=== PATIENT | male | born 1935 | race Caucasian/White ===

== ENCOUNTER 2018-03-12 22:37 | Observation (INO) | payer OTHER ==
[~2018-03-12] VITALS: Ht 188 cm; Wt 99.6 kg
[~2018-03-12 22:37] MED LIST: ALLO100T PO; ATOR40TA PO; CALC600T44 PO; CO Q100C9 PO; DIGO0.25 PO; FINA5TAB77 PO; HUMSS INJ; JANU50TA PO; L-LY500T4 PO; LANTUS2P INJ; LATA.005%O EACH EYE; LORTA5 PO; MAGN250T9 PO; METO100T PO; METO50TA PO; POTA-243 PO; PRIN5TAB PO; SAW450CA2 PO; TAB-TAB PO; VITA200017 PO; WARF7.5T4 PO
[2018-03-12 23:06] VITALS: BP 134/92; PULSE 97; RESP 16; TEMP 98.5; O2SAT 97
[2018-03-12 23:56] LABS: AUTOMATED NEUTROPHIL # 5.4 TH/MM3 (1.8-7.7); BASOPHIL % 0.6 % (0.0-2.0); EOSINOPHIL % 0.6 % (0.0-4.0); HEMOGLOBIN 15.1 GM/DL (13.0-17.0); LYMPH % 14.4 % (9.0-44.0); MEAN CORPUSCULAR HEMOGLOBIN 30.9 PG (27.0-34.0); MEAN CORPUSCULAR HGB CONC 35.1 % (32.0-36.0); MEAN PLATELET VOLUME 8.9 FL (7.0-11.0); MONO % 8.8 % (0.0-8.0); MONOCYTE # 0.6 TH/MM3 (0-0.9); NEUT % 75.6 % (16.0-70.0); PLATELET COUNT 173 TH/MM3 (150-450); RED BLOOD COUNT 4.89 MIL/MM3 (4.50-5.90); RED CELL DISTRIBUTION WIDTH 14.5 % (11.6-17.2); WHITE BLOOD COUNT 7.2 TH/MM3 (4.0-11.0)
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
[2018-03-13 00:10] LABS: ALBUMIN 3.9 GM/DL (3.4-5.0); AST (GOT) 15 U/L (15-37); BLOOD UREA NITROGEN 18 MG/DL (7-18); CALCIUM 9.3 MG/DL (8.5-10.1); CHLORIDE 104 MEQ/L (98-107); CREATININE 1.04 MG/DL (0.60-1.30); GLOMERULAR FILTRATION RATE 69 ML/MIN (>89); GLUCOSE,RANDOM 178 MG/DL (74-106); SODIUM (NA) 139 MEQ/L (136-145)
[2018-03-13 00:11] LABS: ALT (GPT) 20 U/L (12-78)
[2018-03-13 00:22] LABS: ALKALINE PHOSPHATASE 69 U/L (45-117); TOTAL PROTEIN 7.8 GM/DL (6.4-8.2)
[2018-03-13 04:25] LABS: BILIRUBIN, URINE NEG (NEG); BLOOD, URINE NEG (NEG); GLUCOSE,URINE NEG (NEG); HYALINE CAST, URINE 2 /lpf (RARE); KETONE, URINE NEG (NEG); MUCUS URINE FEW /lpf (OCC); NITRITE,URINE NEG (NEG); PH, URINE 6.5 (5.0-8.5); SQUAMOUS EPITHELIAL CELL URINE 1 /hpf (0-5); URINE COLOR LIGHT-YELLOW (YELLW/STRAW); URINE LEUKOCYTE ESTERASE NEG (NEG)
[2018-03-13 07:52] VITALS: BP 166/88; PULSE 80; RESP 16; O2SAT 96
--- NOTE | 2018-03-13 09:50 | EKG ---
Date Performed: 03/13/2018 Time Performed: 00:10:56 PTAGE: 83 years EKG: Atrial fibrillation with ventricular demand pacing Right bundle branch block PREVIOUS TRACING : 04/12/2015 12.20 Suspect left ventricular hypertrophy with repolarizat ion change. Prior tracing shows no intrinsic beats. DOCTOR: Marshall Leal Interpretating Date/Time 03/13/2018 09:48:50
[2018-03-13] MEDS ORDERED: INSULIN ASPART 1,000 UNITS/10 ML VIAL SQ ONE (10:00)
--- NOTE | 2018-03-13 10:04 | PD ---
History of Present Illness Chief Complaint: Psychiatric Symptoms Time Seen by Provider: 09:15 Travel History International Travel<30 Days: No Contact w/Intl Traveler<30days: No Known affected area: No Legal Status Legal Status: Patel Act Patel Act Signed By: Clinton Lynn Patel Act Comment: 2017 @ 2200 History of Present Illness: This is an 83-year-old single, male who presented to this facility under a Patel act for reportedly being unable to care for himself. Patient is unknown to this facility for mental health issues. Reviewed electronic medical record, labs, and discussed case with staff. His nurse reports he has been pleasant and compliant throughout his stay. Follow- up was conducted in patient's room in the main ED with his nurse present. Patient was found sitting up in bed having just finished his breakfast. Patient is alert and oriented 4. He is hard of hearing. His speech is clear, logical, and organized. There is no indication of internal stimulation or thought blocking. He denies feeling suicidal, homicidal, experiencing auditory or visual hallucinations. I can elicit no delusional material. Patient reports that he is followed by Mrs. Anderson from the [facility]. He states that he resides alone and has never been . He does report he has 1 older brother who splits his time between this area and [place]. He states that his brother just return to [place]. Patient denies ever having been treated for mental illness. He denies any previous suicidal attempts. He states "heck no, I am allergic to pain". His mood is good his affect is euthymic. PFSH Past Medical History Cancer: No Cardiovascular Problems: Yes (PACER,CHF,ATRIAL FIBRILLATION) Diabetes: Yes (INSULIN DEPENDENT) Patient Takes Glucophage: No Endocrine: Yes Gastrointestinal Disorders: Yes (GERD, CONSTIPATION) Genitourinary: No Hepatitis: No Hiatal Hernia: No Hypertension: Yes Immune Disorder: No Medical other: No Musculoskeletal: Yes (ARTHRITIS) Neurologic: No Psychiatric: No Reproductive: Yes (REDUCED FUNCTION OF KIDNEYS) Respiratory: No Tetanus Vaccination: Unknown Past Surgical History Abdominal Surgery: Yes (TRACY ING. HERNIA REP., ERCP) AICD: No Cardiac Surgery: Yes (PACEMAKER INSERTION 2010) Joint Replacement: No Oral Surgery: Yes (TONSILLECTOMY) Pacemaker: Yes (BIOTRONIC) Other Surgery: Yes Psychiatric History Psychiatric History Denies Hx Psychiatric Treatment: NO HOSPITAL RECORDS INDICATING ANY PSYCHIATRIC HISTORY History of Inpatient Treatment: No Guns or firearms in home: No Social History Hx Alcohol Use: No Hx Tobacco Use: No Hx Substance Use: No Hx of Substance Use Treatment: No Allergies-Medications (Allergen,Severity, Reaction): Coded Allergies: No Known Allergies (Unverified Adverse Reaction, Unknown, 03/12/18) Reported Meds & Prescriptions Reported Meds & Active Scripts Active Hydrocodone/Acetaminophen 5 mg/325 mg 1 Tab Tab 1 Tab PO Q4H PRN Reported Co Q 10 (Coenzyme Q10) 100 Mg Cap 200 Mg PO DAILY Xalatan (Latanoprost) 0.005 % Soln 1 Drop EACH EYE HS Multivitamin (Multivitamins) 1 Tab Tab 1 Tab PO DAILY Warfarin Sodium 7.5 Mg Tab 7.5 Mg PO DAILY TAKES 7.5 MG HS ON SUNDAY,SUNDAY,SUNDAY,SUNDAY Vitamin D3 Super Strength (Cholecalciferol) 2,000 Unit Cap 2,000 Unit PO HS Saw [place] (Saw [place] (Serenoa Repens)) 450 Mg Cap 450 Mg PO BID Metoprolol Tartrate 100 mg (Metoprolol Tartrate) 100 Mg Tab 100 Mg PO DAILY Metoprolol Tartrate 50 mg (Metoprolol Tartrate) 50 Mg Tab 50 Mg PO HS Magnesium (Magnesium Oxide) 250 Mg Tab 250 Mg PO HS Prinivil (Lisinopril) 5 Mg Tab 5 Mg PO DAILY Lantus (Insulin Glargine) 100 Units/Ml Inj 45 Unit INJ HS L-Lysine (Lysine) 500 Mg Tab 500 Mg PO DAILY Klor-Con 10 Meq (Potassium Chloride) 10 Meq Tabcr 10 Meq PO DAILY Januvia (Sitagliptin Phosphate) 50 Mg Tab 50 Mg PO DAILY Humalog (Insulin Human Lispro) 100 Unit/Ml Inj 15-20 Units INJ TIDAC Proscar 5 Mg Tab (Finasteride) 5 Mg Tab 5 Mg PO HS Digoxin 0.25 mg (Digoxin) 0.25 Mg Tab 0.25 Mg PO DAILY Calcium (Calcium Carbonate) 600 Mg Tab 1,200 Mg PO HS Atorvastatin 40 mg (Atorvastatin Calcium) 40 Mg Tab 40 Mg PO HS Allopurinol 100 Mg Tab 100 Mg PO DAILY Mental Status Examination Appearance: Appropriate Consciousness: Alert Orientation: x4 Motor Activity: Other (Sitting on the stretcher) Speech: Unremarkable Language: Adequate Fund of Knowledge: Adequate Attention and Concentration: Adequate Memory: Unremarkable Mood: Appropriate, Good Affect: Appropriate, Euthymic Thought Process & Associations: Intact Thought Content: Appropriate Hallucination Type: None Delusion Type: None Suicidal Ideation: No Suicidal Plan: No Suicidal Intention: No Homicidal Ideation: No Homicidal Plan: No Homicidal Intention: No Insight: Fair Judgment: Adequate MDM Medical Decision Making Medical Record Reviewed: Yes Assessment/Plan 83-year-old single, male who presents to this facility under Patel act by Clinton SALDAÑA for being unable to care for self. Upon evaluation this morning patient is awake, alert, oriented 4. His speech is clear, logical, and organized. He denies feeling suicidal, homicidal, or experiencing auditory or visual hallucinations. I am unable to elicit any delusional material. There is no indication of internal stimulation. Patient is at a loss to why he was brought here. He feels that he is taking adequate care of himself. He does not meet Patel act or inpatient admission criteria at this time and he would receive no benefit from an admission. However, he does appear to need some case management assistance. I discussed the patient with Dr. Son who concurred and has lifted his Patel act. Medical staff are contacting case management and have passed on the name of his stone paver with [facility]. Orders Orders Complete Blood Count With Diff (03/12/18 23:08) Comprehensive Metabolic Panel (03/12/18 23:08) Psych Screen (03/12/18 23:08) Urinalysis - C+S If Indicated (03/12/18 23:28) Thyroid Stimulating Hormone (03/12/18 23:17) Electrocardiogram (03/13/18 00:05) Diet Regular Basic (03/13/18 Breakfast) Insulin Aspart Inj (Novolog Inj) (03/13/18 10:00) Results Vital Signs Date Time Temp Pulse Resp B/P (MAP) Pulse Ox O2 Delivery O2 Flow Rate FiO2 03/13/18 07:52 80 16 166/88 (114) 96 Room Air 03/12/18 23:06 98.5 97 16 134/92 (408) 97 Laboratory Tests Test 03/12/18 23:17 03/13/18 04:15 White Blood Count 7.2 Red Blood Count 4.89 Hemoglobin 15.1 Hematocrit 43.0 Mean Corpuscular Volume 88.0 Mean Corpuscular Hemoglobin 30.9 Mean Corpuscular Hemoglobin Concent 35.1 Red Cell Distribution Width 14.5 Platelet Count 173 Mean Platelet Volume 8.9 Neutrophils (%) (Auto) 75.6 Lymphocytes (%) (Auto) 14.4 Monocytes (%) (Auto) 8.8 Eosinophils (%) (Auto) 0.6 Basophils (%) (Auto) 0.6 Neutrophils # (Auto) 5.4 Lymphocytes # (Auto) 1.0 Monocytes # (Auto) 0.6 Eosinophils # (Auto) 0.0 Basophils # (Auto) 0.0 CBC Comment DIFF FINAL Differential Comment Blood Urea Nitrogen 18 Creatinine 1.04 Random Glucose 178 Total Protein 7.8 Albumin 3.9 Calcium Level 9.3 Alkaline Phosphatase 69 Aspartate Amino Transf (AST/SGOT) 15 Alanine Aminotransferase (ALT/SGPT) 20 Total Bilirubin 1.0 Sodium Level 139 Potassium Level 3.6 Chloride Level 104 Carbon Dioxide Level 23.0 Anion Gap 12 Estimat Glomerular Filtration Rate 69 Thyroid Stimulating Hormone 3rd Gen 2.680 Urine Color LIGHT-YELLOW Urine Turbidity CLEAR Urine pH 6.5 Urine Specific [place] 1.009 Urine Protein NEG Urine Glucose (UA) NEG Urine Ketones NEG Urine Occult Blood NEG Urine Nitrite NEG Urine Bilirubin NEG Urine Urobilinogen LESS THAN 2.0 Urine Leukocyte Esterase NEG Urine RBC 1 Urine WBC LESS THAN 1 Urine Squamous Epithelial Cells 1 Urine Hyaline Casts 2 Urine Mucus FEW Microscopic Urinalysis Comment CULT NOT INDICATED Diagnosis Primary Impression: Impaired mobility and ADLs Psychiatrically Cleared: Yes Condition: Stable Amirah Sims March 13, 2018 10:04
[2018-03-13] MEDS ORDERED: SODIUM CHLORIDE 0.9% FLUSH 10 ML FLUSH IVF PRN (11:15)
--- NOTE | 2018-03-13 11:36 | PD ---
Physical Exam Date Seen by Provider: March 13, 2018 Time Seen by Provider: 11:38 Narrative 83-year-old male previously medically cleared for psychiatric evaluation after being Patel acted for apparently not be able to care for himself at home. [facility] gone to the home multiple times and found it to be in disarray and unsafe for Mr. Calderon to be living there. Patient was seen by psychiatric services and deemed not appropriate for the Patel act, but when discussed with case management they felt that he was in unsafe discharge to his own home, as [facility] and [facility][MD] feel that he would be unsafe to be living in his current residence. It was recommended that the patient be admitted for observation, physical therapy review, and medical stabilization. They recommend placement in a assisted living facility to ensure the patient's safety and welfare. Data Data Last Documented VS Vital Signs Date Time Temp Pulse Resp B/P (MAP) Pulse Ox O2 Delivery O2 Flow Rate FiO2 03/13/18 07:52 80 16 166/88 (114) 96 Room Air 03/12/18 23:06 98.5 Orders Orders Complete Blood Count With Diff (03/12/18 23:08) Comprehensive Metabolic Panel (03/12/18 23:08) Psych Screen (03/12/18 23:08) Urinalysis - C+S If Indicated (03/12/18 23:28) Thyroid Stimulating Hormone (03/12/18 23:17) Electrocardiogram (03/13/18 00:05) Diet Regular Basic (03/13/18 Breakfast) Insulin Aspart Inj (Novolog Inj) (03/13/18 10:00) Electrocardiogram (03/13/18 11:01) Prothrombin Time / Inr (Pt) (03/13/18 11:01) Act Partial Throm Time (Ptt) (03/13/18 11:01) Sodium Chloride 0.9% Flush (Ns Flush) (03/13/18 11:15) Chest, Single Ap (03/13/18 11:21) Admit Order (Ed Use Only) (03/13/18 11:32) Labs Laboratory Tests Test 03/12/18 23:17 03/13/18 04:15 White Blood Count 7.2 TH/MM3 Red Blood Count 4.89 MIL/MM3 Hemoglobin 15.1 GM/DL Hematocrit 43.0 % Mean Corpuscular Volume 88.0 FL Mean Corpuscular Hemoglobin 30.9 PG Mean Corpuscular Hemoglobin Concent 35.1 % Red Cell Distribution Width 14.5 % Platelet Count 173 TH/MM3 Mean Platelet Volume 8.9 FL Neutrophils (%) (Auto) 75.6 % Lymphocytes (%) (Auto) 14.4 % Monocytes (%) (Auto) 8.8 % Eosinophils (%) (Auto) 0.6 % Basophils (%) (Auto) 0.6 % Neutrophils # (Auto) 5.4 TH/MM3 Lymphocytes # (Auto) 1.0 TH/MM3 Monocytes # (Auto) 0.6 TH/MM3 Eosinophils # (Auto) 0.0 TH/MM3 Basophils # (Auto) 0.0 TH/MM3 CBC Comment DIFF FINAL Differential Comment Blood Urea Nitrogen 18 MG/DL Creatinine 1.04 MG/DL Random Glucose 178 MG/DL Total Protein 7.8 GM/DL Albumin 3.9 GM/DL Calcium Level 9.3 MG/DL Alkaline Phosphatase 69 U/L Aspartate Amino Transf (AST/SGOT) 15 U/L Alanine Aminotransferase (ALT/SGPT) 20 U/L Total Bilirubin 1.0 MG/DL Sodium Level 139 MEQ/L Potassium Level 3.6 MEQ/L Chloride Level 104 MEQ/L Carbon Dioxide Level 23.0 MEQ/L Anion Gap 12 MEQ/L Estimat Glomerular Filtration Rate 69 ML/MIN Thyroid Stimulating Hormone 3rd Gen 2.680 uIU/ML Urine Color LIGHT-YELLOW Urine Turbidity CLEAR Urine pH 6.5 Urine Specific [place] 1.009 Urine Protein NEG mg/dL Urine Glucose (UA) NEG mg/dL Urine Ketones NEG mg/dL Urine Occult Blood NEG Urine Nitrite NEG Urine Bilirubin NEG Urine Urobilinogen LESS THAN 2.0 MG/DL Urine Leukocyte Esterase NEG Urine RBC 1 /hpf Urine WBC LESS THAN 1 /hpf Urine Squamous Epithelial Cells 1 /hpf Urine Hyaline Casts 2 /lpf Urine Mucus FEW /lpf Microscopic Urinalysis Comment CULT NOT INDICATED MDM Medical Record Reviewed: Yes Supervised Visit with TRISTEN: Yes Narrative Course 83-year-old male previously medically cleared for psychiatric evaluation after being Patel acted for apparently not be able to care for himself at home. [facility] has gone to the home multiple times and found it to be in disarray and unsafe for Mr. Calderon to be living there. Patient was seen by psychiatric services and deemed not appropriate for the Patel act, but when discussed with case management they felt that he was in unsafe discharge to his own home, as [facility] and [facility] feel that he would be unsafe to be living in his current residence. It was recommended that the patient be admitted for observation, physical therapy review, and medical stabilization. They recommend placement in a assisted living facility to ensure the patient's safety and welfare. Call was placed to the hospitalist, who agreed to admit the patient for observation. Diagnosis Primary Impression: Impaired mobility and ADLs Admitting Information Admitting Physician Requests: Observation Condition: Stable Joseph Douglas March 13, 2018 11:36
[2018-03-13] MEDS ORDERED: SODIUM CHLORIDE 0.9% FLUSH 10 ML FLUSH IV FLUSH PRN (12:00)
[2018-03-13] MEDS ORDERED: ONDANSETRON HCL 4 MG/2 ML VIAL IVP PRN (12:00)
[2018-03-13] MEDS ORDERED: MAGNESIUM HYDROXIDE SUSP 30 ML CUP PO PRN (12:00)
[2018-03-13] MEDS ORDERED: BISACODYL 10 MG SUPP RECTAL PRN (12:00)
[2018-03-13] MEDS ORDERED: LACTULOSE SYRUP 20 GM/30 ML CUP PO PRN (12:00)
[2018-03-13] MEDS ORDERED: NALOXONE HCL 0.4 MG/ML AMP IV PUSH PRN (12:00)
[2018-03-13] MEDS ORDERED: ALLO100 PO (12:31)
[2018-03-13] MEDS ORDERED: HYDR25TA5 PO (12:31)
[2018-03-13] MEDS ORDERED: FLUT1SPR5 EACH NARE (12:31)
[2018-03-13] MEDS ORDERED: LIPI40TA PO (12:31)
[2018-03-13] MEDS ORDERED: LANO0.252 PO (12:31)
[2018-03-13] MEDS ORDERED: POTA10TA2 PO (12:31)
[2018-03-13] MEDS ORDERED: FURO1TAB60 PO (12:31)
[2018-03-13] MEDS ORDERED: SITA50 PO (12:31)
[2018-03-13] MEDS ORDERED: COUM4TAB PO (12:31)
[2018-03-13] MEDS ORDERED: NOVOLOGP2 SQ (12:31)
[2018-03-13] MEDS ORDERED: LANTUS2P SQ (12:31)
[2018-03-13 12:36] LABS: INTERNATIONAL NORMALIZED RATIO 1.1 RATIO; PROTHROMBIN TIME - PATIENT 11.6 SEC (9.8-11.6)
--- NOTE | 2018-03-13 12:52 | RADRPT ---
EXAM DATE/TIME: 03/13/2018 12:23 [place] COMPARISON: No previous studies available for comparison. INDICATIONS : Congestion and shortness of breath. MEDICAL HISTORY : Myocardial infarction. SURGICAL HISTORY : Pacemaker. ENCOUNTER: Initial ACUITY: 1 day PAIN SCORE: Non-responsive. LOCATION: Bilateral chest FINDINGS: A single AP erect portable view of the chest was obtained and demonstrates a left subclavian transven ous pacer in place. The heart size is mildly enlarged. There are no focal infiltrates or effusions. T here is no perihilar edema. The bony thorax is intact with degenerative changes in the thoracic spine . There is apparent scarring. CONCLUSION: Cardiomegaly with no definite acute cardiopulmonary disease. Leo Martinez MD on March 13, 2018 at 12:50 Board Certified Radiologist. This report was verified electronically.
[2018-03-13 13:30] VITALS: BP 162/84; PULSE 86; RESP 20; O2SAT 96
--- NOTE | 2018-03-13 13:59 | HHI.HP ---
HPI Service [facility] Primary Care Physician Rene Bermudez MD Admission Diagnosis Unable to care for self/Diabetes/Difficulty ambulating/Fall Risk Diagnoses: Chief Complaint: unable to care for self. Travel History International Travel<30 Days: No Contact w/Intl Traveler <30 Da: No Traveled to Known Affected Are: No History of Present Illness Mr. Calderon is a pleasant 83 year old male with a history of Afib, Diabetes, HTN who was brought to the hospital under [employer] act due to inability to care for himself and poor living conditions. He lives alone and apparently has been in touch with [employer] to clean up his house. Today, he went to the store and store merchandiser noted that patient is not able to even go to his car properly. His pants fell and he tried to pull it up. Police was called and they took him home where they noticed extremely poor condition. Subsequently, patient was brought to the hospital for an evaluation. Patient was evaluated by psychiatry who lifted schmid act. Case management was consulted for placement help. Patient wants to go home but he is fine with going to a half-way or assisted living for a short while and then go home. He denies any chest pain, shortness of breath, fever, chills. No dysuria, hematuria. No changes in bowel habits. Review of Systems Except as stated in HPI: all other systems reviewed are Neg Past Family Social History Past Medical History Afib DM HTN GERD Past Surgical History Hernia repair, Pacemaker 2010, Tonsillectomy Reported Medications Hydrocodone/Acetaminophen 5 mg/325 mg 1 Tab Tab 1 Tab PO Q4H PRN Reported Co Q 10 (Coenzyme Q10) 100 Mg Cap 200 Mg PO DAILY Xalatan (Latanoprost) 0.005 % Soln 1 Drop EACH EYE HS Multivitamin (Multivitamins) 1 Tab Tab 1 Tab PO DAILY Warfarin Sodium 7.5 mg (Warfarin Sodium) 7.5 Mg Tab 7.5 Mg PO DAILY TAKES 7.5 MG HS ON SUNDAY,SUNDAY,SUNDAY,SUNDAY Vitamin D3 (Cholecalciferol) 2,000 Unit Cap 2,000 Unit PO HS [place] (Saw [place] (Serenoa Repens)) 450 Mg Cap 450 Mg PO BID Metoprolol Tartrate 100 mg (Metoprolol Tartrate) 100 Mg Tab 100 Mg PO DAILY Metoprolol Tartrate 50 mg (Metoprolol Tartrate) 50 Mg Tab 50 Mg PO HS Magnesium (Magnesium Oxide) 250 Mg Tab 250 Mg PO HS Prinivil (Lisinopril) 5 Mg Tab 5 Mg PO DAILY Lantus (Insulin Glargine) 100 Units/Ml Inj 45 Unit INJ HS L-Lysine (Lysine) 500 Mg Tab 500 Mg PO DAILY Klor-Con 10 Meq (Potassium Chloride) 10 Meq Tabcr 10 Meq PO DAILY Januvia (Sitagliptin Phosphate) 50 Mg Tab 50 Mg PO DAILY Humalog (Insulin Human Lispro) 100 Unit/Ml Inj 15-20 Units INJ TIDAC Proscar 5 Mg Tab (Finasteride) 5 Mg Tab 5 Mg PO HS Digoxin 0.25 mg (Digoxin) 0.25 Mg Tab 0.25 Mg PO DAILY Calcium (Calcium Carbonate) 600 Mg Tab 1,200 Mg PO HS Atorvastatin 40 mg (Atorvastatin Calcium) 40 Mg Tab 40 Mg PO HS Allopurinol 100 Mg Tab 100 Mg PO DAILY Allergies: Coded Allergies: No Known Allergies (Unverified Allergy, Unknown, 03/13/18) Family History No family history of Alzheimer's or Parkinson's. Social History Denies using tobacco, alcohol or illicit drugs. Physical Exam Vital Signs Vital Signs Date Time Temp Pulse Resp B/P (MAP) Pulse Ox O2 Delivery O2 Flow Rate FiO2 03/13/18 07:52 80 16 166/88 (114) 96 Room Air 03/12/18 23:06 98.5 97 16 134/92 (106) 97 Physical Exam GENERAL: This is a well-nourished, well-developed patient, in no apparent distress. Hard of hearing but still able to communicate effectively. Not disheveled. SKIN: No rashes, ecchymoses or lesions. Warm and dry. HEAD: Atraumatic. Normocephalic. No temporal or scalp tenderness. EYES: Pupils equal round and reactive. No injection or drainage. ENT: Nose without bleeding, purulent drainage or septal hematoma. Airway patent. NECK: Trachea midline. No lymphadenopathy. Supple, nontender, no meningeal signs. CARDIOVASCULAR: Regular rate and rhythm without murmurs, gallops, or rubs. No JVD. RESPIRATORY: Clear to auscultation. Breath sounds equal bilaterally. No wheezes , rales, or rhonchi. GASTROINTESTINAL: Abdomen soft, non-tender, nondistended. No guarding. MUSCULOSKELETAL: Extremities without clubbing, cyanosis, or edema. NEUROLOGICAL: Awake and alert. Cranial nerves II through XII intact. No focal neurological deficits. Normal speech. Laboratory Laboratory Tests Test 03/12/18 23:17 03/13/18 04:15 03/13/18 12:14 White Blood Count 7.2 Red Blood Count 4.89 Hemoglobin 15.1 Hematocrit 43.0 Mean Corpuscular Volume 88.0 Mean Corpuscular Hemoglobin 30.9 Mean Corpuscular Hemoglobin Concent 35.1 Red Cell Distribution Width 14.5 Platelet Count 173 Mean Platelet Volume 8.9 Neutrophils (%) (Auto) 75.6 Lymphocytes (%) (Auto) 14.4 Monocytes (%) (Auto) 8.8 Eosinophils (%) (Auto) 0.6 Basophils (%) (Auto) 0.6 Neutrophils # (Auto) 5.4 Lymphocytes # (Auto) 1.0 Monocytes # (Auto) 0.6 Eosinophils # (Auto) 0.0 Basophils # (Auto) 0.0 CBC Comment DIFF FINAL Differential Comment Blood Urea Nitrogen 18 Creatinine 1.04 Random Glucose 178 Total Protein 7.8 Albumin 3.9 Calcium Level 9.3 Alkaline Phosphatase 69 Aspartate Amino Transf (AST/SGOT) 15 Alanine Aminotransferase (ALT/SGPT) 20 Total Bilirubin 1.0 Sodium Level 139 Potassium Level 3.6 Chloride Level 104 Carbon Dioxide Level 23.0 Anion Gap 12 Estimat Glomerular Filtration Rate 69 Thyroid Stimulating Hormone 3rd Gen 2.680 Urine Color LIGHT-YELLOW Urine Turbidity CLEAR Urine pH 6.5 Urine Specific [place] 1.009 Urine Protein NEG Urine Glucose (UA) NEG Urine Ketones NEG Urine Occult Blood NEG Urine Nitrite NEG Urine Bilirubin NEG Urine Urobilinogen LESS THAN 2.0 Urine Leukocyte Esterase NEG Urine RBC 1 Urine WBC LESS THAN 1 Urine Squamous Epithelial Cells 1 Urine Hyaline Casts 2 Urine Mucus FEW Microscopic Urinalysis Comment CULT NOT INDICATED Prothrombin Time 11.6 Prothromb Time International Ratio 1.1 Activated Partial Thromboplast Time 25.3 Result Diagram: 03/12/18 2317 03/12/18 2317 Imaging Last Impressions Chest X-Ray 03/13/18 1121 Signed Impressions: Service Date/Time: Tuesday, March 13, 2018 12:23 - CONCLUSION: Cardiomegaly with no definite acute cardiopulmonary disease. MD Ashley Clemente VTE Risk Assessment Ashley VTE Risk Assessment: Mod/High Risk (score >= 2) Caprini Risk Assessment Model Point Value = 1 Point Value = 2 Point Value = 3 Point Value = 5 Age 41-60 Minor surgery BMI > 25 kg/m2 Swollen legs Varicose veins or History of unexplained or recurrent spontaneous Oral contraceptives or hormone replacement Sepsis (< 1 month) Serious lung disease, including pneumonia (< 1 month) Abnormal pulmonary function Acute myocardial infarction Congestive heart failure (< 1 month) History of inflammatory bowel disease Medical patient at bed rest Age 61-74 Arthroscopic surgery Major open surgery (> 45 min) Laparoscopic surgery (> 45 min) Malignancy Confined to bed (> 72 hours) Immobilizing plaster cast Central venous access Age >= 75 History of VTE Family history of VTE Factor V Leiden Prothrombin [id number] Lupus anticoagulant Anticardiolipin antibodies Elevated serum homocysteine Heparin-induced thrombocytopenia Other congenital or acquired thrombophilia Stroke (< 1 month) Elective arthroplasty Hip, pelvis, or leg fracture Acute spinal cord injury (< 1 month) Prophylaxis Regimen Total Risk Factor Score Risk Level Prophylaxis Regimen 0-1 Low Early ambulation 2 Moderate Order ONE of the following: *Sequential Compression Device (SCD) *Heparin 5000 units SQ BID 3-4 Higher Order ONE of the following medications: *Heparin 5000 units SQ TID *Enoxaparin/Lovenox 40 mg SQ daily (WT < 150 kg, CrCl > 30 mL/min) *Enoxaparin/Lovenox 30 mg SQ daily (WT < 150 kg, CrCl > 10-29 mL/min) *Enoxaparin/Lovenox 30 mg SQ BID (WT < 150 kg, CrCl > 30 mL/min) AND/OR *Sequential Compression Device (SCD) 5 or more Highest Order ONE of the following medications: *Heparin 5000 units SQ TID (Preferred with Epidurals) *Enoxaparin/Lovenox 40 mg SQ daily (WT < 150 kg, CrCl > 30 mL/min) *Enoxaparin/Lovenox 30 mg SQ daily (WT < 150 kg, CrCl > 10-29 mL/min) *Enoxaparin/Lovenox 30 mg SQ BID (WT < 150 kg, CrCl > 30 mL/min) AND *Sequential Compression Device (SCD) Assessment and Plan Problem List: (1) Impaired mobility and ADLs ICD Code: Z74.09 - Other reduced mobility Status: Acute (2) Atrial fibrillation ICD Code: I48.91 - Atrial fibrillation Status: Acute (3) Diabetes mellitus ICD Code: E11.9 - Diabetes mellitus Status: Acute (4) Hypertension ICD Code: I10 - Hypertension Status: Acute Assessment and Plan Mr. Calderon is a pleasant 83 year old male with a history of DM, Afib s/p pacemaker placement who presented to the ED under schmid act due to poor living condition and inability to take care of himself. Psychiatry lifted schmid act. Patient wants to go home. Impaired self care Potential danger to self and others (If patient continues to drive). - Case management is working on placement. [address] would be for the patient to go to SNF and then go to an [facility] - No acute medical issues at this point. Atrial fibrillation -Patient has a pacemaker. He mentions his insurance analyst is with [facility], [place]. -Patient was supposed to be on Warfarin. INR 1.1 which indicates that he has not been taking his medications. -It will likely be easier to take Apixaban for him. Will start patient on Apixaban 5mg BID. -Heart rate went up to 102 later in the day. Will start patient on Metoprolol 25mg BID. Will adjust and/or add CCB if needed. -Hold off using Digoxin for now. Diabetes mellitus -Home med includes 45 units of Lantus. His BG was 178 and subsequently 130s. -He probably does not need this much Lantus. Will start patient on Levemir 10 units and sliding scale insulin. -Will adjust meds as needed. His HbA1C is 6.8. -There is a possibility that patient has been receiving too much hypoglycemic medications (oral and insulin) which may have affected his mentation and general health. Hypertension Hyperlipidemia -Continue Lipitor 40mg QHS. Currently blood pressure within normal range. If needed we will consider BP meds. Full code. Apitwylaban Aileen Rizo DO March 13, 2018 13:59
[2018-03-13] MEDS ORDERED: GLUCAGON 1 MG/ML VIAL OTHER PRN (14:00)
[2018-03-13] MEDS ORDERED: DEXTROSE 50% IN WATER 50 ML VIAL(D50) IV PUSH PRN (14:00)
[2018-03-13 14:44] VITALS: BP 146/96; PULSE 102; RESP 20; TEMP 97.8; O2SAT 97
[2018-03-13 15:10] LABS: HEMOGLOBIN A1C 6.8 % (4.3-6.0)
[2018-03-13 15:59] VITALS: BP 144/86; PULSE 102; RESP 20; TEMP 98.5; O2SAT 95
[2018-03-13] MEDS: INSULIN ASPART SUPPLEMENTAL SCALE SQ SCH ×2 (17:17→22:59)
[2018-03-13] MEDS ORDERED: INSULIN DETEMIR 100 UNITS/ML VIAL SQ SCH ×2 (21:00)
[2018-03-13 22:11] VITALS: BP_SYST 161; BP_SYST 183; BP_DIAS 103; BP_DIAS 104; PULSE 88; RESP 16; TEMP 97.4; O2SAT 94
[2018-03-13] MEDS: METOPROLOL TARTRATE 25 MG TAB PO SCH (22:58)
[2018-03-13] MEDS: ATORVASTATIN 40 MG TAB PO SCH (22:58)
[2018-03-13] MEDS: FLUTICASONE PROPIONATE 50 MCG/ACT 16 GM NASAL SPRAY EACH NARE SCH (22:58)
[2018-03-13] MEDS: APIXABAN 5 MG TABLET PO SCH (23:02)
[2018-03-13] MEDS: SODIUM CHLORIDE 0.9% FLUSH 10 ML FLUSH IV FLUSH SCH (23:03)
[2018-03-14] VITALS (7 sets, daily range): BP systolic 132–197; BP diastolic 56–106; PULSE 73–106; RESP 16–20; TEMP 97.4–98.6; O2SAT 94–97
[2018-03-14] MEDS ORDERED: cloNIDine HCL 0.1 MG TAB PO PRN (08:15)
[2018-03-14] MEDS: FLUTICASONE PROPIONATE 50 MCG/ACT 16 GM NASAL SPRAY EACH NARE SCH ×2 (08:48→21:39)
[2018-03-14] MEDS: METOPROLOL TARTRATE 25 MG TAB PO SCH ×2 (08:49→21:40)
[2018-03-14] MEDS: APIXABAN 5 MG TABLET PO SCH ×2 (08:49→21:40)
[2018-03-14] MEDS: SODIUM CHLORIDE 0.9% FLUSH 10 ML FLUSH IV FLUSH SCH ×2 (08:50→21:40)
[2018-03-14] MEDS: INSULIN ASPART SUPPLEMENTAL SCALE SQ SCH ×4 (08:50→21:41)
--- NOTE | 2018-03-14 09:02 | HHI.PR ---
Subjective Remarks Follow-up for unsafe discharge, diabetes mellitus, hypertension. Patient is currently doing well. No chest pain, shortness of breath, fever or chills. He keeps mentioning about going home. However he is willing to go to SNF if arranged. But he is anxious to go home. Objective Vitals Vital Signs Date Time Temp Pulse Resp B/P (MAP) Pulse Ox O2 Delivery O2 Flow Rate FiO2 03/14/18 08:58 98.0 85 16 179/106 (130) 97 03/14/18 05:41 97.9 90 16 197/99 (131) 96 03/14/18 01:07 98.6 89 16 132/88 (103) 95 03/13/18 22:11 97.4 88 16 161/104 (123) 94 03/13/18 15:59 98.5 102 20 144/86 (105) 95 03/13/18 14:47 03/13/18 14:44 97.8 102 20 146/96 (113) 97 03/13/18 14:33 03/13/18 13:30 86 20 162/84 (110) 96 Room Air I/O 03/13/18 03/13/18 03/13/18 03/14/18 03/14/18 03/14/18 07:00 15:00 23:00 07:00 15:00 23:00 Output Total 1200 ml Balance -1200 ml Output Urine Total 1200 ml # Voids 1 Result Diagram: 03/12/18 2317 03/12/18 2317 Imaging Last Impressions Chest X-Ray 03/13/18 1121 Signed Impressions: Service Date/Time: Tuesday, March 13, 2018 12:23 - CONCLUSION: Cardiomegaly with no definite acute cardiopulmonary disease. Leo Martinez MD Objective Remarks GENERAL: Alert, NAD. Somewhat hard of hearing but able to communicate well. SKIN: Warm and dry. HEAD: Normocephalic. EYES: No scleral icterus. No injection or drainage. NECK: Supple, trachea midline. No JVD or lymphadenopathy. CARDIOVASCULAR: Regular rate and rhythm without murmurs, gallops, or rubs. RESPIRATORY: Breath sounds equal bilaterally. No accessory muscle use. GASTROINTESTINAL: Abdomen soft, non-tender, nondistended. MUSCULOSKELETAL: No cyanosis, or edema. BACK: Nontender without obvious deformity. No CVA tenderness. Procedures None A/P Problem List: (1) Impaired mobility and ADLs ICD Code: Z74.09 - Other reduced mobility Status: Acute (2) Atrial fibrillation ICD Code: I48.91 - Atrial fibrillation Status: Acute (3) Diabetes mellitus ICD Code: E11.9 - Diabetes mellitus Status: Acute (4) Hypertension ICD Code: I10 - Hypertension Status: Acute Assessment and Plan Mr. Calderon is a pleasant 83 year old male with a history of DM, Afib s/p pacemaker placement who presented to the ED under schmid act due to poor living condition and inability to take care of himself. Psychiatry lifted schmid act. Patient wants to go home. Impaired self care Potential danger to self and others (If patient continues to drive). - Case management is working on placement. [address] would be for the patient to go to SNF and then go to an [facility] - No acute medical issues at this point. Atrial fibrillation -Patient has a pacemaker. He mentions his dentist private practice is with [facility]. -Apixaban 5mg BID. -Metoprolol 25mg BID. Diabetes mellitus -Increase Levemir from 10 to 15 units and sliding scale insulin - change to medium scale. -His HbA1C is 6.8. -There is a possibility that patient has been receiving too much hypoglycemic medications (oral and insulin) which may have affected his mentation and general health. Hypertension Hyperlipidemia -Continue Lipitor 40mg QHS. -BP is somewhat high today. Will start patient Nifedipine 30mg Qday. Full code. Apixaban Discharge plan: CM is working on possible SNF placement. Aileen Rizo DO March 14, 2018 9:02 am
[2018-03-14] MEDS ORDERED: NIFEdipine 30 MG SUSTAINED RELEASE TAB PO ONE (14:45)
[2018-03-14] MEDS: ATORVASTATIN 40 MG TAB PO SCH (21:40)
[2018-03-14] MEDS: INSULIN DETEMIR 100 UNITS/ML VIAL SQ SCH (21:41)
[2018-03-15 04:40] VITALS: BP 128/61; PULSE 74; RESP 17; TEMP 98; O2SAT 94
[2018-03-15 07:34] VITALS: BP 154/85; PULSE 83; RESP 16; TEMP 97.7; O2SAT 95
[2018-03-15] MEDS: INSULIN ASPART SUPPLEMENTAL SCALE SQ SCH ×4 (08:00→21:00)
[2018-03-15] MEDS: NIFEdipine 30 MG SUSTAINED RELEASE TAB PO SCH (08:34)
[2018-03-15] MEDS: METOPROLOL TARTRATE 25 MG TAB PO SCH ×3 (08:34→22:05)
[2018-03-15] MEDS: APIXABAN 5 MG TABLET PO SCH ×2 (08:34→22:05)
[2018-03-15] MEDS: SODIUM CHLORIDE 0.9% FLUSH 10 ML FLUSH IV FLUSH SCH ×2 (08:35→22:01)
[2018-03-15] MEDS: FLUTICASONE PROPIONATE 50 MCG/ACT 16 GM NASAL SPRAY EACH NARE SCH ×2 (08:35→22:01)
[2018-03-15 11:39] VITALS: BP 135/95; PULSE 69; RESP 20; TEMP 97.3; O2SAT 96
[2018-03-15] MEDS ORDERED: APIX5TAB PO (12:12)
[2018-03-15] MEDS ORDERED: NOVOLOGP2 SQ (12:12)
[2018-03-15] MEDS ORDERED: LEVEMIR SQ (12:12)
[2018-03-15] MEDS ORDERED: NIFE30TA8 PO (12:14)
[2018-03-15] MEDS ORDERED: METO25TA3 PO (12:14)
--- NOTE | 2018-03-15 13:40 | HHI.PR ---
Subjective Remarks Follow-up for unsafe discharge, diabetes mellitus, hypertension. No acute concerns. However he request that he transferred to a regular room. He would like to go to retirement facility as soon as possible. Objective Vitals Vital Signs Date Time Temp Pulse Resp B/P (MAP) Pulse Ox O2 Delivery O2 Flow Rate FiO2 03/15/18 11:39 97.3 69 20 135/95 (108) 96 03/15/18 07:34 97.7 83 16 154/85 (108) 95 03/15/18 04:40 98.0 74 17 128/61 (83) 94 03/14/18 23:39 98.0 75 17 134/56 (82) 94 03/14/18 19:51 97.8 106 17 137/69 (91) 96 03/14/18 15:40 97.4 73 20 140/89 (106) 97 03/14/18 14:25 98.0 83 20 141/85 (103) 97 Result Diagram: 03/12/18231603/12/182316 Imaging Last Impressions Chest X-Ray 03/13/18 1121 Signed Impressions: Service Date/Time: Tuesday, March 13, 2018 12:23 - CONCLUSION: Cardiomegaly with no definite acute cardiopulmonary disease. Leo Martinez MD Objective Remarks GENERAL: Alert, NAD. Somewhat hard of hearing but able to communicate well. SKIN: Warm and dry. HEAD: Normocephalic. EYES: No scleral icterus. No injection or drainage. NECK: Supple, trachea midline. No JVD or lymphadenopathy. CARDIOVASCULAR: Regular rate and rhythm without murmurs, gallops, or rubs. RESPIRATORY: Breath sounds equal bilaterally. No accessory muscle use. GASTROINTESTINAL: Abdomen soft, non-tender, nondistended. MUSCULOSKELETAL: No cyanosis, or edema. BACK: Nontender without obvious deformity. No CVA tenderness. Procedures None A/P Problem List: (1) Impaired mobility and ADLs ICD Code: Z74.09 - Other reduced mobility Status: Acute (2) Atrial fibrillation ICD Code: I48.91 - Atrial fibrillation Status: Acute (3) Diabetes mellitus ICD Code: E11.9 - Diabetes mellitus Status: Acute (4) Hypertension ICD Code: I10 - Hypertension Status: Acute Assessment and Plan Mr. Calderon is a pleasant 83 year old male with a history of DM, Afib s/p pacemaker placement who presented to the ED under schmid act due to poor living condition and inability to take care of himself. Psychiatry lifted schmid act. Patient wants to go home. Impaired self care Potential danger to self and others (If patient continues to drive). - Case management is working on placement. [address] would be for the patient to go to SNF and then go to an [facility] -Patient requests that he is moved to a regular room when he can use bathroom and take shower. He again expressed keen interest to go to SNF as soon as possible. Case management continues to work on rehab placement. Atrial fibrillation -Patient has a pacemaker. He mentions his hot dimpling machine operator is with [facility]. -Apixaban 5mg BID. -Metoprolol 25mg BID. Diabetes mellitus -Levemir 15 units and sliding scale insulin -His HbA1C is 6.8. -There is a possibility that patient has been receiving too much hypoglycemic medications (oral and insulin) which may have affected his mentation and general health. Hypertension Hyperlipidemia -Continue Lipitor 40mg QHS. -Continue nifedipine 30mg Qday. Transfer to a regular MedSurg room. Full code. Apixaban Discharge plan: CM is working on possible SNF placement. Aileen Rizo DO March 15, 2018 1:40 pm
[2018-03-15 15:14] VITALS: BP 142/87; PULSE 64; RESP 16; TEMP 98.2; O2SAT 95
[2018-03-15 19:59] VITALS: BP 94/66; PULSE 82; RESP 20; TEMP 97.8; O2SAT 95
[2018-03-15] MEDS: INSULIN DETEMIR 100 UNITS/ML VIAL SQ SCH (21:00)
[2018-03-15] MEDS: ATORVASTATIN 40 MG TAB PO SCH (22:05)
[2018-03-15 23:05] VITALS: BP 125/75; PULSE 83; RESP 20; TEMP 97.4; O2SAT 94
[2018-03-16 04:52] VITALS: BP 127/88; PULSE 90; RESP 20; TEMP 97.1; O2SAT 95
[2018-03-16 08:00] VITALS: BP 101/68; PULSE 86; RESP 18; TEMP 97.2; O2SAT 96
[2018-03-16] MEDS: INSULIN ASPART SUPPLEMENTAL SCALE SQ SCH ×4 (08:00→21:54)
[2018-03-16] MEDS: APIXABAN 5 MG TABLET PO SCH ×2 (09:39→21:51)
[2018-03-16] MEDS: NIFEdipine 30 MG SUSTAINED RELEASE TAB PO SCH (09:40)
[2018-03-16] MEDS: SODIUM CHLORIDE 0.9% FLUSH 10 ML FLUSH IV FLUSH SCH ×2 (09:44→21:53)
[2018-03-16] MEDS: FLUTICASONE PROPIONATE 50 MCG/ACT 16 GM NASAL SPRAY EACH NARE SCH ×2 (09:44→21:52)
--- NOTE | 2018-03-16 11:00 | HHI.PR ---
Subjective Remarks Awaiting placement. No safe discharge arranged yet. Patient wants to go home. He has no physical complaints at this time. Objective Vitals Vital Signs Date Time Temp Pulse Resp B/P (MAP) Pulse Ox O2 Delivery O2 Flow Rate FiO2 03/16/18 08:00 97.2 86 18 101/68 (79) 96 03/16/18 04:52 97.1 90 20 127/88 (101) 95 03/15/18 23:05 97.4 83 20 125/75 (92) 94 03/15/18 19:59 97.8 82 20 94/66 (75) 95 03/15/18 15:14 98.2 64 16 142/87 (105) 95 03/15/18 11:39 97.3 69 20 135/95 (108) 96 I/O 03/15/18 03/15/18 03/15/18 03/16/18 03/16/18 03/16/18 07:00 15:00 23:00 07:00 15:00 23:00 Intake Total 240 ml Output Total 875 ml Balance -635 ml Intake Oral 240 ml Output Urine Total 875 ml # Voids 3 # Bowel Movements 0 Result Diagram: 03/12/18 2317 03/12/18 2317 Imaging Last Impressions Chest X-Ray 03/13/18 1121 Signed Impressions: Service Date/Time: Tuesday, March 13, 2018 12:23 - CONCLUSION: Cardiomegaly with no definite acute cardiopulmonary disease. Leo Martinez MD Objective Remarks General: Elderly male in no acute distress. Hard of hearing. Heart: Regular rate and rhythm. No murmur. Lungs: Clear to auscultation bilaterally. No wheezes, rales, or rhonchi. Breathing is nonlabored. Abdomen: Soft, nontender, nondistended. Extremities: No lower extremity edema. Psych: Alert and oriented. Neuro: Normal speech. No focal deficits noted. Procedures None Urinary Catheter: No Vascular Central Line Catheter: No A/P Problem List: (1) Impaired mobility and ADLs ICD Code: Z74.09 - Other reduced mobility Status: Acute (2) Atrial fibrillation ICD Code: I48.91 - Atrial fibrillation Status: Acute (3) Diabetes mellitus ICD Code: E11.9 - Diabetes mellitus Status: Acute (4) Hypertension ICD Code: I10 - Hypertension Status: Acute Assessment and Plan 1. Inability to care for self: Patient could pose a danger to self and others if he continues to drive. Case management working on placement. DCF involved. 2. Atrial fibrillation: Continue Apixaban, metoprolol. 3. Diabetes mellitus: Continue Levemir. Monitor Accu-checks and cover with sliding scale insulin. A1c 6.8. 4. Hypertension: Continue nifedipine, metoprolol. 5. Hyperlipidemia: Continue Lipitor. 6. DVT prophylaxis: Apixaban. Discharge Planning Pending placement. Case management assisting. Miquel Hanley MD March 16, 2018 11:00
[2018-03-16 12:00] VITALS: BP 142/79; PULSE 88; RESP 20; TEMP 98.2; O2SAT 97
[2018-03-16 16:00] VITALS: BP 139/82; PULSE 83; RESP 24; TEMP 98; O2SAT 97
[2018-03-16 20:00] VITALS: BP 141/74; PULSE 89; RESP 20; TEMP 97.8; O2SAT 96
[2018-03-16] MEDS: METOPROLOL TARTRATE 25 MG TAB PO SCH (21:51)
[2018-03-16] MEDS: ATORVASTATIN 40 MG TAB PO SCH (21:51)
[2018-03-16] MEDS: INSULIN DETEMIR 100 UNITS/ML VIAL SQ SCH (21:53)
[2018-03-17] VITALS: BP 151/82; PULSE 78; RESP 20; TEMP 98; O2SAT 94
[2018-03-17 04:00] VITALS: BP 128/73; PULSE 73; RESP 20; TEMP 98.4; O2SAT 95
[2018-03-17 08:00] VITALS: BP 138/67; PULSE 70; RESP 18; TEMP 97.5; O2SAT 96
[2018-03-17] MEDS: INSULIN ASPART SUPPLEMENTAL SCALE SQ SCH ×4 (08:00→22:05)
[2018-03-17] MEDS: METOPROLOL TARTRATE 25 MG TAB PO SCH ×2 (09:21→22:03)
[2018-03-17] MEDS: NIFEdipine 30 MG SUSTAINED RELEASE TAB PO SCH (09:21)
[2018-03-17] MEDS: SODIUM CHLORIDE 0.9% FLUSH 10 ML FLUSH IV FLUSH SCH ×2 (09:21→22:01)
[2018-03-17] MEDS: APIXABAN 5 MG TABLET PO SCH ×2 (09:21→22:02)
[2018-03-17] MEDS: FLUTICASONE PROPIONATE 50 MCG/ACT 16 GM NASAL SPRAY EACH NARE SCH ×2 (09:22→22:01)
[2018-03-17 12:00] VITALS: BP 140/60; PULSE 73; RESP 18; TEMP 97.5; O2SAT 96
--- NOTE | 2018-03-17 14:25 | HHI.PR ---
Subjective Remarks Awaiting discharge arrangements. Patient has no complaints at this time. He wants to go home. Objective Vitals Vital Signs Date Time Temp Pulse Resp B/P (MAP) Pulse Ox O2 Delivery O2 Flow Rate FiO2 03/17/18 08:00 97.5 70 18 138/67 (90) 96 03/17/18 04:00 98.4 73 20 128/73 (91) 95 03/17/18 00:00 98.0 78 20 151/82 (105) 94 03/16/18 20:00 97.8 89 20 141/74 (96) 96 03/16/18 16:00 98.0 83 24 139/82 (101) 97 I/O 03/16/18 03/16/18 03/16/18 03/17/18 03/17/18 03/17/18 07:00 15:00 23:00 07:00 15:00 23:00 Intake Total 240 ml 1860 ml 400 ml Output Total 875 ml 1775 ml 800 ml 550 ml Balance -635 ml 85 ml -400 ml -550 ml Intake Oral 240 ml 1860 ml 400 ml Output Urine Total 875 ml 1775 ml 800 ml 550 ml # Voids 3 1 2 # Bowel Movements 0 Result Diagram: 03/12/18 2317 Imaging Last Impressions Chest X-Ray 03/13/18 1121 Signed Impressions: Service Date/Time: Tuesday, March 13, 2018 12:23 - CONCLUSION: Cardiomegaly with no definite acute cardiopulmonary disease. Leo Martinez MD Objective Remarks General: Elderly male in no acute distress. Hard of hearing. Heart: Regular rate and rhythm. No murmur. Lungs: Clear to auscultation bilaterally. No wheezes, rales, or rhonchi. Breathing is nonlabored. Abdomen: Soft, nontender, nondistended. Extremities: No lower extremity edema. Psych: Alert and oriented. Neuro: Normal speech. No focal deficits noted. Procedures None Urinary Catheter: No Vascular Central Line Catheter: No A/P Problem List: (1) Impaired mobility and ADLs ICD Code: Z74.09 - Other reduced mobility Status: Acute (2) Atrial fibrillation ICD Code: I48.91 - Atrial fibrillation Status: Acute (3) Diabetes mellitus ICD Code: E11.9 - Diabetes mellitus Status: Acute (4) Hypertension ICD Code: I10 - Hypertension Status: Acute Assessment and Plan 03/17/18: No change. Awaiting placement. Continue PT. 1. Inability to care for self: Patient could pose a danger to self and others if he continues to drive. Case management working on placement. DCF involved. 2. Atrial fibrillation: Continue Apixaban, metoprolol. 3. Diabetes mellitus: Continue Levemir. Monitor Accu-checks and cover with sliding scale insulin. A1c 6.8. 4. Hypertension: Continue nifedipine, metoprolol. 5. Hyperlipidemia: Continue Lipitor. 6. DVT prophylaxis: Apixaban. Discharge Planning Pending placement. Case management assisting. Miquel Hanley MD March 17, 2018 14:25
[2018-03-17 16:00] VITALS: BP 140/80; PULSE 80; RESP 18; TEMP 98.3; O2SAT 100
[2018-03-17 20:00] VITALS: BP 114/75; PULSE 70; RESP 22; TEMP 97.7; O2SAT 95
[2018-03-17] MEDS: ATORVASTATIN 40 MG TAB PO SCH (22:03)
[2018-03-17] MEDS: INSULIN DETEMIR 100 UNITS/ML VIAL SQ SCH (22:05)
[2018-03-18] VITALS: BP 116/75; PULSE 81; RESP 20; TEMP 97.8; O2SAT 96
[2018-03-18 04:00] VITALS: BP 140/90; PULSE 70; RESP 22; TEMP 98; O2SAT 95
[2018-03-18 08:00] VITALS: BP 127/93; PULSE 71; RESP 16; TEMP 96; O2SAT 88
[2018-03-18] MEDS: INSULIN ASPART SUPPLEMENTAL SCALE SQ SCH ×4 (08:00→21:55)
[2018-03-18] MEDS: APIXABAN 5 MG TABLET PO SCH ×2 (08:29→21:51)
[2018-03-18] MEDS: NIFEdipine 30 MG SUSTAINED RELEASE TAB PO SCH (08:29)
[2018-03-18] MEDS: SODIUM CHLORIDE 0.9% FLUSH 10 ML FLUSH IV FLUSH SCH ×2 (08:29→21:53)
[2018-03-18] MEDS: METOPROLOL TARTRATE 25 MG TAB PO SCH ×2 (08:29→21:53)
[2018-03-18] MEDS: FLUTICASONE PROPIONATE 50 MCG/ACT 16 GM NASAL SPRAY EACH NARE SCH ×2 (08:35→21:52)
[2018-03-18 12:00] VITALS: BP 123/78; PULSE 68; RESP 16; TEMP 97.5; O2SAT 96
--- NOTE | 2018-03-18 12:50 | HHI.PR ---
Subjective Remarks Follow up inability to care for self. Awaiting discharge arrangements. No complaints at this time. Objective Vitals Vital Signs Date Time Temp Pulse Resp B/P (MAP) Pulse Ox O2 Delivery O2 Flow Rate FiO2 03/18/18 12:00 97.5 68 16 123/78 (93) 96 03/18/18 08:00 96.0 71 16 127/93 (104) 88 03/18/18 04:00 98.0 70 22 140/90 (107) 95 03/18/18 00:00 97.8 81 20 116/75 (89) 96 03/17/18 20:00 97.7 70 22 114/75 (88) 95 03/17/18 16:00 98.3 80 18 140/80 (100) 100 I/O 03/17/18 03/17/18 03/17/18 03/18/18 03/18/18 03/18/18 07:00 15:00 23:00 07:00 15:00 23:00 Intake Total 400 ml 800 ml Output Total 800 ml 550 ml 530 ml 1000 ml Balance -400 ml -550 ml -530 ml -200 ml Intake Oral 400 ml 800 ml Output Urine Total 800 ml 550 ml 530 ml 1000 ml # Voids 2 2 # Bowel Movements 1 Imaging Last Impressions Chest X-Ray 03/13/18 1121 Signed Impressions: Service Date/Time: Tuesday, March 13, 2018 12:23 - CONCLUSION: Cardiomegaly with no definite acute cardiopulmonary disease. Leo Martinez MD Objective Remarks General: Elderly male in no acute distress. Hard of hearing. Heart: Regular rate and rhythm. No murmur. Lungs: Clear to auscultation bilaterally. No wheezes, rales, or rhonchi. Breathing is nonlabored. Abdomen: Soft, nontender, nondistended. Extremities: No lower extremity edema. Psych: Alert, answers questions appropriately. Neuro: Normal speech. No focal deficits noted. Procedures None Urinary Catheter: No Vascular Central Line Catheter: No A/P Problem List: (1) Impaired mobility and ADLs ICD Code: Z74.09 - Other reduced mobility Status: Acute (2) Atrial fibrillation ICD Code: I48.91 - Atrial fibrillation Status: Acute (3) Diabetes mellitus ICD Code: E11.9 - Diabetes mellitus Status: Acute (4) Hypertension ICD Code: I10 - Hypertension Status: Acute Assessment and Plan 03/18/18: No change. Awaiting placement. Continue PT. 1. Inability to care for self: Patient could pose a danger to self and others if he continues to drive. Case management working on placement. DCF involved. 2. Atrial fibrillation: Continue Apixaban, metoprolol. 3. Diabetes mellitus: Continue Levemir. Monitor Accu-checks and cover with sliding scale insulin. A1c 6.8. 4. Hypertension: Continue nifedipine, metoprolol. 5. Hyperlipidemia: Continue Lipitor. 6. DVT prophylaxis: Apixaban. Discharge Planning Patient needs long-term placement. Case management assisting. Miquel Hanley MD March 18, 2018 12:50
[2018-03-18 16:00] VITALS: BP 141/91; PULSE 74; RESP 18; TEMP 97.3; O2SAT 95
[2018-03-18 20:00] VITALS: BP 158/93; PULSE 80; RESP 19; TEMP 99; O2SAT 96
[2018-03-18] MEDS: ACETAMINOPHEN 325 MG TAB PO PRN (21:50)
[2018-03-18] MEDS: ATORVASTATIN 40 MG TAB PO SCH (21:51)
[2018-03-18] MEDS: INSULIN DETEMIR 100 UNITS/ML VIAL SQ SCH (21:53)
[2018-03-19] VITALS: BP 146/71; PULSE 67; RESP 16; TEMP 98.4; O2SAT 96
[2018-03-19 04:00] VITALS: BP 140/66; PULSE 74; RESP 17; TEMP 98.1; O2SAT 97
[2018-03-19] MEDS: ACETAMINOPHEN 325 MG TAB PO PRN ×2 (05:11→16:29)
[2018-03-19] MEDS: APIXABAN 5 MG TABLET PO SCH ×2 (07:28→21:33)
[2018-03-19] MEDS: NIFEdipine 30 MG SUSTAINED RELEASE TAB PO SCH (07:28)
[2018-03-19] MEDS: INSULIN ASPART SUPPLEMENTAL SCALE SQ SCH ×4 (07:29→21:39)
[2018-03-19] MEDS: SODIUM CHLORIDE 0.9% FLUSH 10 ML FLUSH IV FLUSH SCH ×2 (07:29→21:32)
[2018-03-19] MEDS: FLUTICASONE PROPIONATE 50 MCG/ACT 16 GM NASAL SPRAY EACH NARE SCH ×2 (07:29→21:31)
[2018-03-19 08:06] VITALS: BP 139/73; PULSE 70; RESP 17; TEMP 98.2; O2SAT 97
[2018-03-19] MEDS: METOPROLOL TARTRATE 25 MG TAB PO SCH ×2 (08:32→21:38)
[2018-03-19 12:06] VITALS: BP 134/83; PULSE 65; RESP 17; TEMP 98; O2SAT 93
--- NOTE | 2018-03-19 13:46 | HHI.PR ---
Subjective Remarks Follow-up inability to care for self. Case management assisting with discharge planning. No arrangements made yet. Objective Vitals Vital Signs Date Time Temp Pulse Resp B/P (MAP) Pulse Ox O2 Delivery O2 Flow Rate FiO2 03/19/18 08:06 98.2 70 17 139/73 (95) 97 03/19/18 07:00 Room Air 03/19/18 04:00 98.1 74 17 140/66 (90) 97 03/19/18 00:00 98.4 67 16 146/71 (96) 96 03/18/18 20:00 99.0 80 19 158/93 (114) 96 03/18/18 20:00 Room Air 03/18/18 16:00 97.3 74 18 141/91 (108) 95 I/O 03/18/18 03/18/18 03/18/18 03/19/18 03/19/18 03/19/18 07:00 15:00 23:00 07:00 15:00 23:00 Intake Total 800 ml 720 ml 600 ml Output Total 1000 ml 1525 ml 1625 ml Balance -200 ml -805 ml -1025 ml Intake Oral 800 ml 720 ml 600 ml Output Urine Total 1000 ml 1525 ml 1625 ml # Bowel Movements 1 1 Imaging Last Impressions Chest X-Ray 03/13/18 1121 Signed Impressions: Service Date/Time: Tuesday, March 13, 2018 12:23 - CONCLUSION: Cardiomegaly with no definite acute cardiopulmonary disease. Leo Martinez MD Objective Remarks General: Elderly male in no acute distress. Hard of hearing. Heart: Regular rate and rhythm. No murmur. Lungs: Clear to auscultation bilaterally. No wheezes, rales, or rhonchi. Breathing is nonlabored. Abdomen: Soft, nontender, nondistended. Extremities: No lower extremity edema. Psych: Alert, answers questions appropriately. Neuro: Normal speech. No focal deficits noted. Procedures None Urinary Catheter: No Vascular Central Line Catheter: No A/P Problem List: (1) Impaired mobility and ADLs ICD Code: Z74.09 - Other reduced mobility Status: Acute (2) Atrial fibrillation ICD Code: I48.91 - Atrial fibrillation Status: Acute (3) Diabetes mellitus ICD Code: E11.9 - Diabetes mellitus Status: Acute (4) Hypertension ICD Code: I10 - Hypertension Status: Acute Assessment and Plan 03/19/18: No change. Awaiting placement. Continue PT. 1. Inability to care for self: Patient could pose a danger to self and others if he continues to drive. Case management working on placement. DCF involved. 2. Atrial fibrillation: Continue Apixaban, metoprolol. 3. Diabetes mellitus: Continue Levemir. Monitor Accu-checks and cover with sliding scale insulin. A1c 6.8. 4. Hypertension: Continue nifedipine, metoprolol. 5. Hyperlipidemia: Continue Lipitor. 6. DVT prophylaxis: Apixaban. Discharge Planning Patient needs long-term placement. Case management assisting. Miquel Hanley MD March 19, 2018 13:46
[2018-03-19 16:06] VITALS: BP 125/74; PULSE 67; RESP 18; TEMP 97.5; O2SAT 94
[2018-03-19 20:00] VITALS: BP 137/75; PULSE 78; RESP 18; TEMP 97.8; O2SAT 95
[2018-03-19] MEDS: ATORVASTATIN 40 MG TAB PO SCH (21:33)
[2018-03-19] MEDS: INSULIN DETEMIR 100 UNITS/ML VIAL SQ SCH (21:38)
[2018-03-20] VITALS: BP 112/70; PULSE 77; RESP 17; TEMP 97.9; O2SAT 95
[2018-03-20] MEDS: ACETAMINOPHEN 325 MG TAB PO PRN ×3 (02:38→23:00)
[2018-03-20 04:00] VITALS: BP 140/80; PULSE 78; RESP 19; TEMP 97.9; O2SAT 96
[2018-03-20] MEDS: INSULIN ASPART SUPPLEMENTAL SCALE SQ SCH ×4 (08:00→23:02)
[2018-03-20 08:09] VITALS: BP 127/76; PULSE 70; RESP 18; TEMP 97.3; O2SAT 98
[2018-03-20] MEDS: FLUTICASONE PROPIONATE 50 MCG/ACT 16 GM NASAL SPRAY EACH NARE SCH ×2 (09:00→23:01)
[2018-03-20] MEDS: SODIUM CHLORIDE 0.9% FLUSH 10 ML FLUSH IV FLUSH SCH ×2 (09:32→23:02)
[2018-03-20] MEDS: NIFEdipine 30 MG SUSTAINED RELEASE TAB PO SCH (09:34)
[2018-03-20] MEDS: APIXABAN 5 MG TABLET PO SCH ×2 (09:34→23:00)
[2018-03-20] MEDS: METOPROLOL TARTRATE 25 MG TAB PO SCH ×2 (09:34→23:00)
[2018-03-20 12:09] VITALS: BP 161/73; PULSE 76; RESP 18; TEMP 97.4; O2SAT 96
--- NOTE | 2018-03-20 15:20 | HHI.PR ---
Subjective Remarks Nursing denies any deterioration since last night. Patient himself has no new complaints, wants to know what his discharge plan of care is. Objective Vital Signs Date Time Temp Pulse Resp B/P (MAP) Pulse Ox O2 Delivery O2 Flow Rate FiO2 03/20/18 12:09 97.4 76 18 161/73 (102) 96 03/20/18 09:00 Room Air 03/20/18 08:09 97.3 70 18 127/76 (93) 98 03/20/18 04:00 97.9 78 19 140/80 (100) 96 03/20/18 00:00 97.9 77 17 112/70 (84) 95 03/19/18 20:00 97.8 78 18 137/75 (95) 95 03/19/18 20:00 Room Air 03/19/18 16:06 97.5 67 18 125/74 (91) 94 I/O 03/19/18 03/19/18 03/19/18 03/20/18 03/20/18 03/20/18 07:00 15:00 23:00 07:00 15:00 23:00 Intake Total 600 ml 420 ml 900 ml Output Total 1625 ml 1000 ml Balance -1025 ml 420 ml -100 ml Intake Oral 600 ml 420 ml 900 ml Output Urine Total 1625 ml 1000 ml # Voids 3 # Bowel Movements 0 Objective Remarks Sitting up in bed, no acute distress, awake, alert, very hard of hearing, no facial droop, no slurred speech A/P Assessment and Plan 1. Inability to care for self: Patient could pose a danger to self and others if he continues to drive. Case management working on placement. DCF involved. PT recommending inpatient rehab. Patient is cooperating with physical therapy, is just very hard of hearing. Ordering occupational therapy assessment. 2. Atrial fibrillation: Continue Apixaban, metoprolol. 3. Diabetes mellitus: Continue Levemir. Monitor Accu-checks and cover with sliding scale insulin. A1c 6.8. 4. Hypertension: Continue nifedipine, metoprolol. 5. Hyperlipidemia: Continue Lipitor. 6. DVT prophylaxis: Apixaban. Joseph De Los Santos MD March 20, 2018 15:20
[2018-03-20 18:09] VITALS: BP 144/72; PULSE 74; RESP 18; TEMP 97.5; O2SAT 98
[2018-03-20 20:00] VITALS: BP 117/73; PULSE 73; RESP 18; TEMP 97.8; O2SAT 94
[2018-03-20] MEDS: ATORVASTATIN 40 MG TAB PO SCH (23:01)
[2018-03-20] MEDS: INSULIN DETEMIR 100 UNITS/ML VIAL SQ SCH (23:02)
[2018-03-21] VITALS: BP 124/58; PULSE 62; RESP 20; TEMP 97.3; O2SAT 96
[2018-03-21] MEDS ORDERED: TEMAZEPAM 15 MG CAP PO ONE (01:45)
[2018-03-21 04:00] VITALS: BP 121/62; PULSE 70; RESP 20; TEMP 97.5; O2SAT 95
[2018-03-21 08:00] VITALS: BP 146/63; PULSE 66; RESP 15; TEMP 97.6; O2SAT 95
[2018-03-21] MEDS: INSULIN ASPART SUPPLEMENTAL SCALE SQ SCH ×4 (08:00→20:57)
[2018-03-21] MEDS: NIFEdipine 30 MG SUSTAINED RELEASE TAB PO SCH (08:25)
[2018-03-21] MEDS: APIXABAN 5 MG TABLET PO SCH ×2 (08:26→20:57)
[2018-03-21] MEDS: METOPROLOL TARTRATE 25 MG TAB PO SCH ×2 (08:26→20:57)
[2018-03-21] MEDS: SODIUM CHLORIDE 0.9% FLUSH 10 ML FLUSH IV FLUSH SCH ×2 (08:27→20:57)
[2018-03-21] MEDS: FLUTICASONE PROPIONATE 50 MCG/ACT 16 GM NASAL SPRAY EACH NARE SCH ×2 (08:28→20:57)
[2018-03-21] MEDS: ACETAMINOPHEN 325 MG TAB PO PRN ×2 (11:40→21:01)
[2018-03-21 12:00] VITALS: BP 127/79; PULSE 70; RESP 17; TEMP 98; O2SAT 96
[2018-03-21 16:00] VITALS: BP 125/71; PULSE 66; RESP 19; TEMP 97.7; O2SAT 97
--- NOTE | 2018-03-21 18:05 | HHI.PR ---
Subjective Remarks Nursing denies any deterioration since last night. Patient himself has no new complaints, wants to know what his discharge plan of care is. Has no new complaints. Objective Vital Signs Date Time Temp Pulse Resp B/P (MAP) Pulse Ox O2 Delivery O2 Flow Rate FiO2 03/21/18 16:00 97.7 66 19 125/71 (89) 97 03/21/18 12:00 98.0 70 17 127/79 (95) 96 03/21/18 09:31 Room Air 03/21/18 08:00 97.6 66 15 146/63 (90) 95 03/21/18 04:00 97.5 70 20 121/62 (81) 95 03/21/18 00:00 97.3 62 20 124/58 (80) 96 03/20/18 20:00 97.8 73 18 117/73 (88) 94 03/20/18 20:00 Room Air 03/20/18 18:09 97.5 74 18 144/72 (96) 98 I/O 03/20/18 03/20/18 03/20/18 03/21/18 03/21/18 03/21/18 07:00 15:00 23:00 07:00 15:00 23:00 Intake Total 900 ml 360 ml 360 ml Output Total 1000 ml 1200 ml 1925 ml Balance -100 ml -840 ml -1565 ml Intake Oral 900 ml 360 ml 360 ml Output Urine Total 1000 ml 1200 ml 1925 ml # Bowel Movements 1 0 Objective Remarks Sitting up in bed, no acute distress, awake, alert, very hard of hearing, no facial droop, no slurred speech A/P Assessment and Plan 1. Inability to care for self: Patient could pose a danger to self and others if he continues to drive. Case management working on placement. DCF involved. PT recommending inpatient rehab. Patient is cooperating with physical therapy, is just very hard of hearing. OT recommending rehab as well. Attempted peer to peer; insurance is requesting re-submission for SNF request. 2. Atrial fibrillation: Continue Apixaban, metoprolol. 3. Diabetes mellitus: Continue Levemir. Monitor Accu-checks and cover with sliding scale insulin. A1c 6.8. 4. Hypertension: Continue nifedipine, metoprolol. 5. Hyperlipidemia: Continue Lipitor. 6. DVT prophylaxis: Apixaban. Joseph De Los Santos MD March 21, 2018 18:05
[2018-03-21 20:00] VITALS: BP 130/60; PULSE 75; RESP 20; TEMP 97.9; O2SAT 94
[2018-03-21] MEDS: ATORVASTATIN 40 MG TAB PO SCH (20:57)
[2018-03-21] MEDS: INSULIN DETEMIR 100 UNITS/ML VIAL SQ SCH (20:57)
[2018-03-22] VITALS: BP 122/65; PULSE 78; RESP 20; TEMP 97.5; O2SAT 97
[2018-03-22] MEDS: ACETAMINOPHEN 325 MG TAB PO PRN ×3 (02:27→21:30)
[2018-03-22 04:00] VITALS: BP 140/74; PULSE 79; RESP 20; TEMP 97.3; O2SAT 97
[2018-03-22 08:00] VITALS: BP 132/71; PULSE 73; RESP 20; TEMP 97.3; O2SAT 97
[2018-03-22] MEDS: INSULIN ASPART SUPPLEMENTAL SCALE SQ SCH ×4 (08:00→21:00)
[2018-03-22] MEDS: SODIUM CHLORIDE 0.9% FLUSH 10 ML FLUSH IV FLUSH SCH ×2 (08:14→21:00)
[2018-03-22] MEDS: NIFEdipine 30 MG SUSTAINED RELEASE TAB PO SCH (08:14)
[2018-03-22] MEDS: METOPROLOL TARTRATE 25 MG TAB PO SCH ×2 (08:14→21:30)
[2018-03-22] MEDS: APIXABAN 5 MG TABLET PO SCH ×2 (08:14→21:30)
[2018-03-22] MEDS: FLUTICASONE PROPIONATE 50 MCG/ACT 16 GM NASAL SPRAY EACH NARE SCH ×2 (08:16→21:00)
[2018-03-22 12:00] VITALS: BP 136/69; PULSE 77; RESP 20; TEMP 97.2; O2SAT 98
--- NOTE | 2018-03-22 13:02 | HHI.DCPOC ---
Discharge Care Plan Diagnosis: (1) Impaired mobility and ADLs Goals to Promote Your Health * To prevent worsening of your condition and complications * To maintain your health at the optimal level Directions to Meet Your Goals Take your medications as prescribed Follow your dietary instruction Follow activity as directed Keep your appointments as scheduled Take your immunizations and boosters as scheduled If your symptoms worsen call your PCP, if no PCP go to Urgent Care Center or Emergency Room Smoking is Dangerous to Your Health. Avoid second hand smoke Call the 24-hour hour crisis hotline for domestic abuse at Joseph De Los Santos MD March 22, 2018 13:02
--- NOTE | 2018-03-22 15:03 | HHI.DS ---
Discharge Summary Admission Date March 13, 2018 at 11:34 Admitting Diagnosis Unable to care for self/Diabetes/Difficulty ambulating/Fall Risk (1) Impaired mobility and ADLs ICD Code: Z74.09 - Other reduced mobility Status: Acute (2) Atrial fibrillation ICD Code: I48.91 - Atrial fibrillation Status: Acute (3) Diabetes mellitus ICD Code: E11.9 - Diabetes mellitus Status: Acute (4) Hypertension ICD Code: I10 - Hypertension Status: Acute Procedures None Brief History - From Admission Mr. Calderon is a pleasant 83 year old male with a history of Afib, Diabetes, HTN who was brought to the hospital under patel act due to inability to care for himself and poor living conditions. He lives alone and apparently has been in touch with [employer] to clean up his house. Today, he went to the store and store associate noted that patient is not able to even go to his car properly. His pants fell and he tried to pull it up. Police was called and they took him home where they noticed extremely poor condition. Subsequently, patient was brought to the hospital for an evaluation. Patient was evaluated by psychiatry who lifted patel act. Case management was consulted for placement help. Patient wants to go home but he is fine with going to a shelter or assisted living for a short while and then go home. He denies any chest pain, shortness of breath, fever, chills. No dysuria, hematuria. No changes in bowel habits. Imaging Last Impressions Chest X-Ray 03/13/18 1121 Signed Impressions: Service Date/Time: Tuesday, March 13, 2018 12:23 - CONCLUSION: Cardiomegaly with no definite acute cardiopulmonary disease. Leo Martinez MD PE at Discharge Sitting up in bed, awake, alert, no acute distress, very hard of hearing, clear lungs bilaterally Hospital Course Patient was admitted, initially evaluated by psychiatry which lifted the Patel act. Due to the patient's concern of very poor living conditions and his inability to take care of himself, occupational and physical therapy both evaluated the patient and deemed him appropriate for PT at inpatient rehab. [facility] facility placement was secured. Patient has met maximal benefit from hospitalization and is clinically stable for discharge to a long-term facility. Patient had been transitioned from warfarin to Eliquis for his A. fib. Pt Condition on Discharge: Good Discharge Disposition: Discharge to SNF Discharge Time: <= 30 minutes Discharge Instructions DIET: Follow Instructions for: Diabetic Diet Activities you can perform: Regular-No Restrictions Follow up Referrals: SNF/[facility]/ New Medications: Insulin Aspart Inj (Novolog Inj) 1,000 Unit/10 Ml Vial 1-9 UNITS SQ ACHS for Blood Sugar Management, #10 ML 0 Refills Max dose at bedtime:( )units; sugars less than 70,(0)units; sugars 150-199,(1) unit; sugars 200-249,(3) units; sugars 250-299,(5) units; sugars 300-349,(7) units; sugars greater than 349,(9) units Apixaban (Eliquis) 5 Mg Tab 5 MG PO BID for Blood Clot Prevention, #60 TAB 11 Refills Insulin Detemir Inj (Levemir Inj) 1,000 unit/ 10 ML Vial 15 UNITS SQ HS for Blood Sugar Management for 30 Days, INJECTION Do not mix with any other Insulin. Metoprolol Tartrate (Metoprolol Tartrate) 25 Mg Tab 25 MG PO Q12HR for Afib, #60 TAB 4 Refills Nifedipine ER 24 HR (Nifedipine ER 24 HR) 30 Mg Tab 30 MG PO DAILY for Blood Pressure Management, #30 TAB 11 Refills Continued Medications: Allopurinol (Zyloprim) 100 Mg Tab 100 MG PO DAILY for Gout, #30 TAB 0 Refills Atorvastatin (Lipitor) 40 Mg Tab 40 MG PO HS for Cholesterol Management, #30 TAB 0 Refills Fluticasone Nasal [place] (Flonase Nasal [place]) 50 Mcg/Act [place] 1 SPRAY EACH NARE BID for Allergies, #1 BOTTLE 0 Refills Sitagliptin (Januvia) 50 Mg Tab 50 MG PO DAILY for Blood Sugar Management, #30 TAB 0 Refills Discontinued Medications: Digoxin (Lanoxin) 250 Mcg Tablet 250 MCG PO DAILY, TAB 0 Refills Furosemide (Lasix) 40 Mg Tab 40 MG PO DAILY, #30 TAB 0 Refills Hydrochlorothiazide (Hydrochlorothiazide) 25 Mg Tab 25 MG PO DAILY, #30 TAB 0 Refills Insulin Aspart Inj (Novolog Inj) 1,000 Unit/10 Ml Vial 15-20 UNITS SQ TIDAC for Blood Sugar Management, #10 ML 0 Refills Sliding Scale as directed. Insulin Glargine Inj (Lantus Inj) 100 Unit/Ml Inj 45 UNITS SQ HS Potassium Chloride ER (Potassium Chloride ER) 10 Meq Tab 10 MEQ PO DAILY for Electrolyte Replacement, #30 TAB 0 Refills Warfarin (Coumadin) 4 Mg Tab 8 MG PO DAILY for Prevent Blood Clot, #30 TAB 0 Refills Joseph De Los Santos MD March 22, 2018 15:03
--- NOTE | 2018-03-22 15:50 | HHI.PR ---
Subjective Remarks Nursing denies any deterioration since last night. Patient himself has no new complaints, wants to know what his discharge plan of care is. Has no new complaints. Objective Vital Signs Date Time Temp Pulse Resp B/P (MAP) Pulse Ox O2 Delivery O2 Flow Rate FiO2 03/22/18 12:00 97.2 77 20 136/69 (91) 98 03/22/18 09:06 Room Air 03/22/18 08:00 97.3 73 20 132/71 (91) 97 03/22/18 04:00 97.3 79 20 140/74 (96) 97 03/22/18 04:00 Room Air 03/22/18 00:00 97.5 78 20 122/65 (84) 97 03/22/18 00:00 Room Air 03/21/18 20:00 97.9 75 20 130/60 (83) 94 03/21/18 20:00 Room Air 03/21/18 16:00 97.7 66 19 125/71 (89) 97 I/O 03/21/18 03/21/18 03/21/18 03/22/18 03/22/18 03/22/18 07:00 15:00 23:00 07:00 15:00 23:00 Intake Total 360 ml 1500 ml 240 ml Output Total 1925 ml 1900 ml 625 ml Balance -1565 ml -400 ml -385 ml Intake Oral 360 ml 1500 ml 240 ml Output Urine Total 1925 ml 1900 ml 625 ml # Voids 1 2 # Bowel Movements 0 0 0 Objective Remarks Sitting up in bed, no acute distress, awake, alert, very hard of hearing, no facial droop, no slurred speech A/P Assessment and Plan 1. Inability to care for self: Patient could pose a danger to self and others if he continues to drive. Case management working on placement. DCF involved. PT recommending inpatient rehab. Patient is cooperating with physical therapy, is just very hard of hearing. OT recommending rehab as well. Attempted peer to peer; insurance is requesting re-submission for SNF request. 2. Atrial fibrillation: Continue Apixaban, metoprolol. 3. Diabetes mellitus: Continue Levemir. Monitor Accu-checks and cover with sliding scale insulin. A1c 6.8. 4. Hypertension: Continue nifedipine, metoprolol. 5. Hyperlipidemia: Continue Lipitor. 6. DVT prophylaxis: Apixaban. Discharge Planning pending insurance approval for SNF; pt unable to handle living by himself despite his claims that he can Joseph De Los Santos MD March 22, 2018 15:50
[2018-03-22 16:00] VITALS: BP 126/64; PULSE 77; RESP 20; TEMP 97.8; O2SAT 96
[2018-03-22 20:00] VITALS: BP 148/73; PULSE 72; RESP 18; TEMP 97.2; O2SAT 97
[2018-03-22] MEDS: INSULIN DETEMIR 100 UNITS/ML VIAL SQ SCH (21:00)
[2018-03-22] MEDS: ATORVASTATIN 40 MG TAB PO SCH (21:30)
[2018-03-23] VITALS: BP 134/68; PULSE 73; RESP 18; TEMP 97.3; O2SAT 95
[2018-03-23] MEDS: ACETAMINOPHEN 325 MG TAB PO PRN ×4 (01:23→21:05)
[2018-03-23 04:00] VITALS: BP 144/83; PULSE 68; RESP 16; TEMP 97.6; O2SAT 95
[2018-03-23 08:00] VITALS: BP 114/61; PULSE 64; RESP 20; TEMP 98.3; O2SAT 95
[2018-03-23] MEDS: APIXABAN 5 MG TABLET PO SCH ×2 (08:45→20:38)
[2018-03-23] MEDS: NIFEdipine 30 MG SUSTAINED RELEASE TAB PO SCH (08:45)
[2018-03-23] MEDS: INSULIN ASPART SUPPLEMENTAL SCALE SQ SCH ×4 (08:45→20:40)
[2018-03-23] MEDS: METOPROLOL TARTRATE 25 MG TAB PO SCH ×2 (08:45→20:38)
[2018-03-23] MEDS: SODIUM CHLORIDE 0.9% FLUSH 10 ML FLUSH IV FLUSH SCH ×2 (08:48→20:40)
[2018-03-23] MEDS: FLUTICASONE PROPIONATE 50 MCG/ACT 16 GM NASAL SPRAY EACH NARE SCH ×2 (08:48→20:37)
[2018-03-23 12:10] VITALS: BP 131/71; PULSE 69; RESP 20; TEMP 98.5; O2SAT 96
[2018-03-23] MEDS: SENNOSIDES 8.6 MG TAB PO PRN (12:21)
[2018-03-23 15:50] VITALS: BP 152/77; PULSE 81; RESP 20; TEMP 98.4; O2SAT 96
--- NOTE | 2018-03-23 16:58 | HHI.PR ---
Subjective Remarks Pt asking when he can go home. Denies any CP/SOB/N/V states that he has a brother or a cousin he thinks he may be able to stay with. Pt wishes to have glucerna chocolate flavor. Objective Vitals Vital Signs Date Time Temp Pulse Resp B/P (MAP) Pulse Ox O2 Delivery O2 Flow Rate FiO2 03/23/18 12:10 98.5 69 20 131/71 (91) 96 03/23/18 08:00 98.3 64 20 114/61 (78) 95 03/23/18 08:00 Room Air 03/23/18 04:00 97.6 68 16 144/83 (103) 95 03/23/18 00:00 97.3 73 18 134/68 (90) 95 03/22/18 20:00 97.2 72 18 148/73 (98) 97 03/22/18 20:00 Room Air I/O 03/22/18 03/22/18 03/22/18 03/23/18 03/23/18 03/23/18 07:00 15:00 23:00 07:00 15:00 23:00 Intake Total 240 ml 480 ml 480 ml Output Total 625 ml 950 ml 2100 ml Balance -385 ml -470 ml -1620 ml Intake Oral 240 ml 480 ml 480 ml Output Urine Total 625 ml 950 ml 2100 ml # Voids 2 # Bowel Movements 0 0 Imaging Last Impressions Chest X-Ray 03/13/18 1121 Signed Impressions: Service Date/Time: Tuesday, March 13, 2018 12:23 - CONCLUSION: Cardiomegaly with no definite acute cardiopulmonary disease. eLo Martinez MD Objective Remarks Sitting up in bed, awake, alert, appears comfortable very hard of hearing, repeats his questions CVS rrr w no obvious murmurs lungs are clear moves ext Procedures None A/P Problem List: (1) Impaired mobility and ADLs ICD Code: Z74.09 - Other reduced mobility Status: Acute (2) Atrial fibrillation ICD Code: I48.91 - Atrial fibrillation Status: Acute (3) Diabetes mellitus ICD Code: E11.9 - Diabetes mellitus Status: Acute (4) Hypertension ICD Code: I10 - Hypertension Status: Acute Assessment and Plan 1. Inability to care for self: Patient could pose a danger to self and others if he continues to drive. Case management working on placement. DCF involved. PT recommending inpatient rehab. Patient is cooperating with physical therapy, is just very hard of hearing. OT recommending rehab as well. Attempted peer to peer; insurance is requesting re-submission for SNF request. Discussed w CM, awaiting authorization. Pt also states he thinks he could stay w family members. I explained to him that he should definitely speak w family to see if they could make arrangements to care for him however he would definitely benefit from rehab first before going home w them if they agree. 2. Atrial fibrillation: Continue Apixaban, metoprolol. 3. Diabetes mellitus: Continue Levemir. Monitor Accu-checks and cover with sliding scale insulin. A1c 6.8. 4. Hypertension: Continue nifedipine, metoprolol. 5. Hyperlipidemia: Continue Lipitor. 6. DVT prophylaxis: Apixaban. Discharge Planning pending insurance approval for SNF; pt unable to handle living by himself despite his claims that he can Miley Sheldon MD March 23, 2018 16:58
[2018-03-23 20:00] VITALS: BP 115/64; PULSE 72; RESP 18; TEMP 97.3; O2SAT 95
[2018-03-23] MEDS: ATORVASTATIN 40 MG TAB PO SCH (20:38)
[2018-03-23] MEDS: INSULIN DETEMIR 100 UNITS/ML VIAL SQ SCH (20:39)
[2018-03-23] MEDS ORDERED: MELATONIN 5 MG TAB PO ONE (23:30)
[2018-03-24] VITALS: BP 136/76; PULSE 74; RESP 18; TEMP 97.3; O2SAT 97
[2018-03-24 04:00] VITALS: BP 124/74; PULSE 68; RESP 16; TEMP 97.8; O2SAT 95
[2018-03-24] MEDS: INSULIN ASPART SUPPLEMENTAL SCALE SQ SCH ×4 (08:00→21:26)
[2018-03-24 08:05] VITALS: BP 127/61; PULSE 66; RESP 20; TEMP 97.6; O2SAT 97
[2018-03-24] MEDS: SODIUM CHLORIDE 0.9% FLUSH 10 ML FLUSH IV FLUSH SCH ×2 (08:51→21:24)
[2018-03-24] MEDS: FLUTICASONE PROPIONATE 50 MCG/ACT 16 GM NASAL SPRAY EACH NARE SCH ×2 (08:51→21:24)
[2018-03-24] MEDS: METOPROLOL TARTRATE 25 MG TAB PO SCH ×2 (08:52→21:25)
[2018-03-24] MEDS: NIFEdipine 30 MG SUSTAINED RELEASE TAB PO SCH (08:52)
[2018-03-24] MEDS: APIXABAN 5 MG TABLET PO SCH ×2 (08:52→21:24)
[2018-03-24 11:38] VITALS: BP 130/80; PULSE 73; RESP 18; TEMP 98.4; O2SAT 96
[2018-03-24 16:05] VITALS: BP 128/77; PULSE 76; RESP 20; TEMP 97.6; O2SAT 97
[2018-03-24] MEDS: ACETAMINOPHEN 325 MG TAB PO PRN (16:55)
[2018-03-24 19:40] VITALS: BP 127/75; PULSE 67; RESP 14; TEMP 98.2; O2SAT 98
[2018-03-24] MEDS: ATORVASTATIN 40 MG TAB PO SCH (21:25)
[2018-03-24] MEDS: INSULIN DETEMIR 100 UNITS/ML VIAL SQ SCH (21:25)
[2018-03-25] VITALS: BP 125/74; PULSE 73; RESP 16; TEMP 98.2; O2SAT 95
[2018-03-25] MEDS: ACETAMINOPHEN 325 MG TAB PO PRN ×2 (01:18→19:02)
[2018-03-25 04:00] VITALS: BP 121/75; PULSE 61; RESP 14; TEMP 98.3; O2SAT 96
[2018-03-25] MEDS: INSULIN ASPART SUPPLEMENTAL SCALE SQ SCH ×4 (08:00→20:47)
[2018-03-25 08:06] VITALS: BP 138/90; PULSE 66; RESP 18; TEMP 98.1; O2SAT 96
[2018-03-25] MEDS: APIXABAN 5 MG TABLET PO SCH ×2 (08:56→20:46)
[2018-03-25] MEDS: SODIUM CHLORIDE 0.9% FLUSH 10 ML FLUSH IV FLUSH SCH ×2 (08:56→20:46)
[2018-03-25] MEDS: FLUTICASONE PROPIONATE 50 MCG/ACT 16 GM NASAL SPRAY EACH NARE SCH ×2 (08:56→20:46)
[2018-03-25] MEDS: METOPROLOL TARTRATE 25 MG TAB PO SCH ×2 (08:56→20:45)
[2018-03-25] MEDS: NIFEdipine 30 MG SUSTAINED RELEASE TAB PO SCH (08:56)
[2018-03-25 12:17] VITALS: BP 116/75; PULSE 73; RESP 18; TEMP 97.6; O2SAT 95
--- NOTE | 2018-03-25 14:27 | HHI.PR ---
Subjective Remarks LATE ENTRY FOR DOS 03/24/18. Nursing denies any deterioration since last night. Patient himself has verbalized no new complaints. Objective Vital Signs Date Time Temp Pulse Resp B/P (MAP) Pulse Ox O2 Delivery O2 Flow Rate FiO2 03/25/18 12:17 97.6 73 18 116/75 (89) 95 03/25/18 08:06 98.1 66 18 138/90 (106) 96 03/25/18 07:36 Room Air 03/25/18 04:00 98.3 61 14 121/75 (90) 96 03/25/18 04:00 Room Air 03/25/18 00:00 98.2 73 16 125/74 (91) 95 03/25/18 00:00 Room Air 03/24/18 20:00 Room Air 03/24/18 19:40 98.2 67 14 127/75 (92) 98 03/24/18 16:05 97.6 76 20 128/77 (94) 97 I/O 03/24/18 03/24/18 03/24/18 03/25/18 03/25/18 03/25/18 07:00 15:00 23:00 07:00 15:00 23:00 Intake Total 480 ml 720 ml 620 ml 0 ml Output Total 1500 ml 775 ml 1900 ml Balance -1020 ml -55 ml -1280 ml 0 ml Intake Oral 480 ml 720 ml 620 ml IV Total 0 ml Output Urine Total 1500 ml 775 ml 1900 ml Objective Remarks Sitting up in bed, no acute distress, awake, alert, Watching television Unlabored breathing A/P Assessment and Plan 1. Inability to care for self: Patient could pose a danger to self and others if he continues to drive. Case management working on placement. DCF involved. PT recommending inpatient rehab. Patient is cooperating with physical therapy, is just very hard of hearing. OT recommending rehab as well. Attempted peer to peer; insurance is requesting re-submission for SNF request. 2. Atrial fibrillation: Continue Apixaban, metoprolol. 3. Diabetes mellitus: Continue Levemir. Monitor Accu-checks and cover with sliding scale insulin. A1c 6.8. 4. Hypertension: Continue nifedipine, metoprolol. 5. Hyperlipidemia: Continue Lipitor. 6. DVT prophylaxis: Apixaban. Discharge Planning pending insurance approval for SNF; pt unable to handle living by himself despite his claims that he can Joseph De Los Santos MD March 25, 2018 14:27
--- NOTE | 2018-03-25 14:28 | HHI.PR ---
Subjective Remarks Nursing denies any deterioration since last night. No new complaints have been reported by the patient. Objective Vital Signs Date Time Temp Pulse Resp B/P (MAP) Pulse Ox O2 Delivery O2 Flow Rate FiO2 03/25/18 12:17 97.6 73 18 116/75 (89) 95 03/25/18 08:06 98.1 66 18 138/90 (106) 96 03/25/18 07:36 Room Air 03/25/18 04:00 98.3 61 14 121/75 (90) 96 03/25/18 04:00 Room Air 03/25/18 00:00 98.2 73 16 125/74 (91) 95 03/25/18 00:00 Room Air 03/24/18 20:00 Room Air 03/24/18 19:40 98.2 67 14 127/75 (92) 98 03/24/18 16:05 97.6 76 20 128/77 (94) 97 I/O 03/24/18 03/24/18 03/24/18 03/25/18 03/25/18 03/25/18 07:00 15:00 23:00 07:00 15:00 23:00 Intake Total 480 ml 720 ml 620 ml 0 ml Output Total 1500 ml 775 ml 1900 ml Balance -1020 ml -55 ml -1280 ml 0 ml Intake Oral 480 ml 720 ml 620 ml IV Total 0 ml Output Urine Total 1500 ml 775 ml 1900 ml Objective Remarks Sitting up in bed, Watching television Unlabored breathing, on room air A/P Assessment and Plan 1. Inability to care for self: Discussed case management, patient apparently at this time has no living residence option, near his family is out of town.. Insurance has denied for second time [facility] facility. Life insurance policy details are pending, has a place at an [facility] once approved. 2. Atrial fibrillation: Continue Apixaban, metoprolol. 3. Diabetes mellitus: Continue Levemir. Monitor Accu-checks and cover with sliding scale insulin. A1c 6.8. 4. Hypertension: Continue nifedipine, metoprolol. 5. Hyperlipidemia: Continue Lipitor. 6. DVT prophylaxis: Apixaban. Discharge Planning pending insurance approval for SNF; pt unable to handle living by himself despite his claims that he can Joseph De Los Santos MD March 25, 2018 14:28
[2018-03-25 16:06] VITALS: BP 117/74; PULSE 70; RESP 18; TEMP 97.3; O2SAT 96
[2018-03-25 20:42] VITALS: BP 142/83; PULSE 78; RESP 18; TEMP 98; O2SAT 94
[2018-03-25] MEDS: ATORVASTATIN 40 MG TAB PO SCH (20:45)
[2018-03-25] MEDS: INSULIN DETEMIR 100 UNITS/ML VIAL SQ SCH (20:46)
[2018-03-26] VITALS: BP 149/80; PULSE 76; RESP 20; TEMP 97.2; O2SAT 95
[2018-03-26 04:00] VITALS: BP 126/80; PULSE 77; RESP 20; TEMP 97.1; O2SAT 96
[2018-03-26] MEDS: ACETAMINOPHEN 325 MG TAB PO PRN ×3 (04:02→21:01)
[2018-03-26 07:55] VITALS: BP 173/89; PULSE 69; RESP 20; TEMP 98.1; O2SAT 96
[2018-03-26] MEDS: INSULIN ASPART SUPPLEMENTAL SCALE SQ SCH ×4 (08:00→21:04)
[2018-03-26] MEDS: SODIUM CHLORIDE 0.9% FLUSH 10 ML FLUSH IV FLUSH SCH ×2 (08:48→21:03)
[2018-03-26] MEDS: METOPROLOL TARTRATE 25 MG TAB PO SCH ×2 (08:48→21:01)
[2018-03-26] MEDS: APIXABAN 5 MG TABLET PO SCH ×2 (08:48→21:01)
[2018-03-26] MEDS: NIFEdipine 30 MG SUSTAINED RELEASE TAB PO SCH (08:48)
[2018-03-26] MEDS: FLUTICASONE PROPIONATE 50 MCG/ACT 16 GM NASAL SPRAY EACH NARE SCH ×2 (08:49→21:03)
[2018-03-26 11:55] VITALS: BP 121/64; PULSE 67; RESP 18; TEMP 97.3; O2SAT 97
--- NOTE | 2018-03-26 15:05 | HHI.PR ---
Subjective Remarks Nursing denies any deterioration since last night. No new complaints have been reported by the patient. Is eating by himself sitting up in his chair. Objective Vital Signs Date Time Temp Pulse Resp B/P (MAP) Pulse Ox O2 Delivery O2 Flow Rate FiO2 03/26/18 11:55 97.3 67 18 121/64 (83) 97 03/26/18 07:55 98.1 69 20 173/89 (117) 96 03/26/18 07:16 Room Air 03/26/18 04:00 97.1 77 20 126/80 (95) 96 03/26/18 00:00 97.2 76 20 149/80 (103) 95 03/26/18 00:00 Room Air 03/25/18 20:42 98.0 78 18 142/83 (102) 94 03/25/18 20:00 Room Air 03/25/18 16:13 03/25/18 16:06 97.3 70 18 117/74 (88) 96 I/O 03/25/18 03/25/18 03/25/18 03/26/18 03/26/18 03/26/18 07:00 15:00 23:00 07:00 15:00 23:00 Intake Total 620 ml 0 ml 960 ml 360 ml 0 ml Output Total 1900 ml 1000 ml 1650 ml Balance -1280 ml 0 ml -40 ml -1290 ml 0 ml Intake Oral 620 ml 960 ml 360 ml IV Total 0 ml 0 ml Output Urine Total 1900 ml 1000 ml 1650 ml # Bowel Movements 0 0 Objective Remarks Sitting up in chair Unlabored breathing, no acute distress Eating lunch comfortably A/P Assessment and Plan 1. Inability to care for self: Discussed case management, patient apparently at this time has no living residence option, near his family is out of town.. Insurance has denied for second time nursing home facility. Life insurance policy details are pending, has a place at an [facility] once approved. Still pending details 2. Atrial fibrillation: Continue Apixaban, metoprolol. 3. Diabetes mellitus: Continue Levemir. Monitor Accu-checks and cover with sliding scale insulin. A1c 6.8. 4. Hypertension: Continue nifedipine, metoprolol. 5. Hyperlipidemia: Continue Lipitor. 6. DVT prophylaxis: Apixaban. Discharge Planning pending insurance policy benefits per case management for [facility] placement; pt unable to handle living by himself despite his claims that he can Joseph De Los Santos MD March 26, 2018 15:05
[2018-03-26 16:25] VITALS: BP 140/72; PULSE 66; RESP 20; TEMP 97.2; O2SAT 94
[2018-03-26 20:00] VITALS: BP 118/63; PULSE 73; RESP 18; TEMP 97.4; O2SAT 96
[2018-03-26] MEDS: ATORVASTATIN 40 MG TAB PO SCH (21:01)
[2018-03-26] MEDS: INSULIN DETEMIR 100 UNITS/ML VIAL SQ SCH (21:03)
[2018-03-27] VITALS: BP 147/67; PULSE 70; RESP 16; TEMP 97.3; O2SAT 97
[2018-03-27 04:00] VITALS: BP 131/76; PULSE 65; RESP 18; TEMP 97.2; O2SAT 96
[2018-03-27] MEDS: ACETAMINOPHEN 325 MG TAB PO PRN ×3 (05:03→22:35)
[2018-03-27] MEDS: INSULIN ASPART SUPPLEMENTAL SCALE SQ SCH ×4 (08:00→21:00)
[2018-03-27 08:09] VITALS: BP 133/78; PULSE 79; RESP 18; TEMP 97.3; O2SAT 95
[2018-03-27] MEDS: APIXABAN 5 MG TABLET PO SCH ×2 (08:26→21:15)
[2018-03-27] MEDS: METOPROLOL TARTRATE 25 MG TAB PO SCH ×2 (08:26→21:15)
[2018-03-27] MEDS: NIFEdipine 30 MG SUSTAINED RELEASE TAB PO SCH (08:26)
[2018-03-27] MEDS: SODIUM CHLORIDE 0.9% FLUSH 10 ML FLUSH IV FLUSH SCH ×2 (08:26→21:15)
[2018-03-27] MEDS: FLUTICASONE PROPIONATE 50 MCG/ACT 16 GM NASAL SPRAY EACH NARE SCH ×2 (08:27→21:15)
--- NOTE | 2018-03-27 10:35 | HHI.PR ---
Subjective Remarks 03-26 Nursing denies any deterioration since last night. No new complaints have been reported by the patient. Is eating by himself sitting up in his chair. 03-27 NO NEW COMPLAINTS WANTS TO GO HOME BUT NOT A SAFE DC TO HOME AWAIT FAMILY HELP FOR PLACEMENT Objective Vitals Vital Signs Date Time Temp Pulse Resp B/P (MAP) Pulse Ox O2 Delivery O2 Flow Rate FiO2 03/27/18 08:09 97.3 79 18 133/78 (96) 95 03/27/18 08:00 Room Air 03/27/18 04:00 97.2 65 18 131/76 (94) 96 03/27/18 00:00 97.3 70 16 147/67 (93) 97 03/26/18 20:00 97.4 73 18 118/63 (81) 96 03/26/18 20:00 Room Air 03/26/18 16:25 97.2 66 20 140/72 (94) 94 03/26/18 11:55 97.3 67 18 121/64 (83) 97 I/O 03/26/18 03/26/18 03/26/18 03/27/18 03/27/18 03/27/18 07:00 15:00 23:00 07:00 15:00 23:00 Intake Total 360 ml 0 ml 840 ml 800 ml Output Total 1650 ml 700 ml 1175 ml Balance -1290 ml 0 ml 140 ml -375 ml Intake Oral 360 ml 840 ml 800 ml IV Total 0 ml Output Urine Total 1650 ml 700 ml 1175 ml # Bowel Movements 0 Imaging Last Impressions Chest X-Ray 03/13/18 1121 Signed Impressions: Service Date/Time: Tuesday, March 13, 2018 12:23 - CONCLUSION: Cardiomegaly with no definite acute cardiopulmonary disease. Leo Martinez MD Objective Remarks GENERAL: Very hard of hearing awake and alert and oriented 3 talkative and cooperative SKIN: Warm and dry. HEAD: Atraumatic. Normocephalic. EYES: Pupils equal and round. No scleral icterus. No injection or drainage. Extraocular muscles intact ENT: No nasal bleeding or discharge. Mucous membranes pink and moist. Tongue is midline NECK: Trachea midline. No JVD. CARDIOVASCULAR:IRRegular rate and rhythm. S1-S2 no S3-S4 RESPIRATORY: No accessory muscle use. Clear to auscultation. Breath sounds equal bilaterally. GASTROINTESTINAL: Abdomen soft, non-tender, nondistended. Hepatic and splenic margins not palpable. MUSCULOSKELETAL: Extremities without clubbing, cyanosis, or edema. No obvious deformities. NEUROLOGICAL: Awake and alert. No obvious cranial nerve deficits. Motor grossly within normal limits. 4 out of 5 muscle strength in the arms and legs. Normal speech. PSYCHIATRIC: INAppropriate mood and affect; insight and judgment ABnormal. Procedures None Medications and IVs Current Medications Insulin Aspart (NovoLOG INJ) 15 units ONCE ONCE SQ Last administered on at 10:43; Start 03/13/18 at 10:00; Stop 03/13/18 at 10:01; Status DC Sodium Chloride (NS Flush) 2 ml UNSCH PRN IVF FLUSH AFTER USING IV ACCESS; Start 03/13/18 at 11:15; Stop 03/13/18 at 17:55; Status DC Sodium Chloride (NS Flush) 2 ml UNSCH PRN IV FLUSH FLUSH AFTER USING IV ACCESS ; Start 03/13/18 at 12:00 Sodium Chloride (NS Flush) 2 ml BID IV FLUSH Last administered on 03/27/18at 08: 26; Start 03/13/18 at 21:00 Acetaminophen (Tylenol) 650 mg Q4H PRN PO TEMP > 100.4, headache Last administered on 03/27/18at 10:06; Start 03/13/18 at 12:00 Ondansetron HCl (Zofran Inj) 4 mg Q6H PRN IVP NAUSEA OR VOMITING; Start at 12:00 Naloxone HCl (Narcan Inj) 0.4 mg UNSCH PRN IV PUSH SEE LABEL COMMENTS; Start at 12:00 Magnesium Hydroxide (Milk Of Magnesia Liq) 30 ml Q12H PRN PO Mild constipation ; Start 03/13/18 at 12:00 Sennosides (Senokot) 17.2 mg Q12H PRN PO Moderate constipation Last administered on 03/23/18at 12:21; Start 03/13/18 at 12:00 Bisacodyl (Dulcolax Supp) 10 mg DAILY PRN RECTAL SEVERE CONSITIPATION; Start at 12:00 Lactulose (Lactulose Liq) 30 ml DAILY PRN PO SEVERE CONSITIPATION; Start at 12:00 Atorvastatin Calcium (Lipitor) 40 mg HS PO Last administered on 03/26/18at 21:01 ; Start 03/13/18 at 21:00 Insulin Detemir (Levemir Inj) 45 units HS SQ ; Start 03/13/18 at 21:00; Stop 03/13 at 21:00; Status DC Fluticasone Propionate (Flonase Irving Spr) 1 spray BID EACH NARE Last administered on 03/27/18at 08:27; Start 03/13/18 at 21:00 Dextrose (D50w (Vial) Inj) 50 ml UNSCH PRN IV PUSH HYPOGLYCEMIA-SEE COMMENTS; Start 03/13/18 at 14:00 Glucagon (Glucagon Inj) 1 mg UNSCH PRN OTHER HYPOGLYCEMIA-SEE COMMENTS; Start 03/13/18 at 14:00 Insulin Aspart (NovoLOG SUPPLEMENTAL SCALE) 1 ACHS SLIDING SCALE SQ Last administered on 03/14/18at 13:21; Start 03/13/18 at 17:00; Stop 03/14/18 at 14:25; Status DC Insulin Detemir (Levemir Inj) 10 units HS SQ Last administered on 03/13/18at 22: 59; Start 03/13/18 at 21:00; Stop 03/14/18 at 14:25; Status DC Apixaban (Eliquis) 5 mg BID PO Last administered on 03/27/18 08:26; Start 03/13 at 21:00 Metoprolol Tartrate (Lopressor) 25 mg Q12HR PO Last administered on 03/27/18at 08:26; Start 03/13/18 at 21:00 Clonidine (Catapres) 0.1 mg Q6H PRN PO SBP>160, DBP>90 Last administered on 03/14at 10:25; Start 03/14/18 at 08:15 Insulin Detemir (Levemir Inj) 15 units HS SQ Last administered on 03/26/18at 21: 03; Start 03/14/18 at 21:00 Insulin Aspart (NovoLOG SUPPLEMENTAL SCALE) 1 ACHS SLIDING SCALE SQ Last administered on 03/26/18at 21:04; Start 03/14/18 at 17:00 Nifedipine (Procardia Xl) 30 mg DAILY PO Last administered on 03/27/18 08:26; Start 03/15/18 at 09:00 Nifedipine (Procardia Xl) 30 mg ONCE ONCE PO Last administered on 03/14/18at 14: 57; Start 03/14/18 at 14:45; Stop 03/14/18 at 14:46; Status DC Temazepam (Restoril) 15 mg ONCE ONCE PO Last administered on 03/21/18at 02:00; Start 03/21/18 at 01:45; Stop 03/21/18 at 01:46; Status DC Melatonin (Melatonin) 5 mg ONCE ONCE PO Last administered on 03/24/18at 00:13; Start 03/23/18 at 23:30; Stop 03/23/18 at 23:31; Status DC A/P Problem List: (1) Impaired mobility and ADLs ICD Code: Z74.09 - Other reduced mobility Status: Acute (2) Atrial fibrillation ICD Code: I48.91 - Atrial fibrillation Status: Acute (3) Diabetes mellitus ICD Code: E11.9 - Diabetes mellitus Status: Acute (4) Hypertension ICD Code: I10 - Hypertension Status: Acute Assessment and Plan 1. Inability to care for self: Discussed case management, patient apparently at this time has no living residence option, near his family is out of town.. Insurance has denied for second time detention facility. Life insurance policy details are pending, has a place at an [facility] once approved. Still pending details DEFER TO FOR PLACEMENT 2. Atrial fibrillation: Continue Apixaban, metoprolol. 3. Diabetes mellitus: Continue Levemir. Monitor Accu-checks and cover with sliding scale insulin. A1c 6.8. 4. Hypertension: Continue nifedipine, metoprolol. 5. Hyperlipidemia: Continue Lipitor. 6. DVT prophylaxis: Apixaban. Discharge Planning We will need SNF or [facility] at discharge DIFFICULT PLACEMENT DUE TO FAMILY NOT LOCAL AND FINANCIAL STATUS Suleiman Ellison DO March 27, 2018 10:35
[2018-03-27 12:09] VITALS: BP 116/58; PULSE 63; RESP 18; TEMP 97.4; O2SAT 96
[2018-03-27 16:09] VITALS: BP 116/69; PULSE 68; RESP 18; TEMP 97.4; O2SAT 98
[2018-03-27 20:00] VITALS: BP 125/59; PULSE 76; RESP 20; TEMP 97.6; O2SAT 96
[2018-03-27] MEDS: INSULIN DETEMIR 100 UNITS/ML VIAL SQ SCH (21:14)
[2018-03-27] MEDS: ATORVASTATIN 40 MG TAB PO SCH (21:15)
[2018-03-28] VITALS: BP 125/80; PULSE 80; RESP 20; TEMP 97.6; O2SAT 95
[2018-03-28 04:00] VITALS: BP 154/74; PULSE 80; RESP 20; TEMP 97.8; O2SAT 97
[2018-03-28 07:23] LABS: AUTOMATED NEUTROPHIL # 3.1 TH/MM3 (1.8-7.7); BASOPHIL % 0.9 % (0.0-2.0); EOSINOPHIL # 0.1 TH/MM3 (0-0.4); EOSINOPHIL % 1.7 % (0.0-4.0); HEMATOCRIT 45.3 % (39.0-51.0); HEMOGLOBIN 15.5 GM/DL (13.0-17.0); LYMPH % 29.1 % (9.0-44.0); LYMPHOCYTE # 1.5 TH/MM3 (1.0-4.8); MEAN CELL VOLUME 88.8 FL (80.0-100.0); MEAN CORPUSCULAR HEMOGLOBIN 30.4 PG (27.0-34.0); MEAN CORPUSCULAR HGB CONC 34.2 % (32.0-36.0); MEAN PLATELET VOLUME 8.1 FL (7.0-11.0); MONO % 10.1 % (0.0-8.0); MONOCYTE # 0.5 TH/MM3 (0-0.9); NEUT % 58.2 % (16.0-70.0); PLATELET COUNT 181 TH/MM3 (150-450); RED CELL DISTRIBUTION WIDTH 14.4 % (11.6-17.2); WHITE BLOOD COUNT 5.2 TH/MM3 (4.0-11.0)
[2018-03-28 07:41] LABS: AST (GOT) 17 U/L (15-37); BICARBONATE 30.1 MEQ/L (21.0-32.0); BLOOD UREA NITROGEN 23 MG/DL (7-18); CALCIUM 9.1 MG/DL (8.5-10.1); CHLORIDE 104 MEQ/L (98-107); GLOMERULAR FILTRATION RATE 81 ML/MIN (>89); GLUCOSE,RANDOM 127 MG/DL (74-106); MAGNESIUM 2.2 MG/DL (1.5-2.5); SODIUM (NA) 141 MEQ/L (136-145)
[2018-03-28 07:49] LABS: ALKALINE PHOSPHATASE 62 U/L (45-117); ALT (GPT) 24 U/L (12-78); PHOSPHORUS 3.1 MG/DL (2.5-4.9); TOTAL PROTEIN 7.8 GM/DL (6.4-8.2)
[2018-03-28] MEDS: INSULIN ASPART SUPPLEMENTAL SCALE SQ SCH ×4 (08:00→21:00)
[2018-03-28 08:06] VITALS: BP 135/70; PULSE 75; RESP 18; TEMP 97; O2SAT 95
[2018-03-28] MEDS: METOPROLOL TARTRATE 25 MG TAB PO SCH ×2 (08:36→21:15)
[2018-03-28] MEDS: SODIUM CHLORIDE 0.9% FLUSH 10 ML FLUSH IV FLUSH SCH ×2 (08:36→21:14)
[2018-03-28] MEDS: APIXABAN 5 MG TABLET PO SCH ×2 (08:36→21:15)
[2018-03-28] MEDS: NIFEdipine 30 MG SUSTAINED RELEASE TAB PO SCH (08:36)
[2018-03-28] MEDS: FLUTICASONE PROPIONATE 50 MCG/ACT 16 GM NASAL SPRAY EACH NARE SCH ×2 (08:37→21:00)
[2018-03-28 12:06] VITALS: BP 111/58; PULSE 69; RESP 18; TEMP 97.3; O2SAT 95
--- NOTE | 2018-03-28 14:26 | HHI.PR ---
Subjective Remarks - Nursing denies any deterioration since last night. No new complaints have been reported by the patient. Is eating by himself sitting up in his chair. 03-27 NO NEW COMPLAINTS WANTS TO GO HOME BUT NOT A SAFE DC TO HOME AWAIT FAMILY HELP FOR PLACEMENT 03-28 AWAIT SNF TOMORROW NO NEW COMPLAINTS DW RN AND PT Objective Vitals Vital Signs Date Time Temp Pulse Resp B/P (MAP) Pulse Ox O2 Delivery O2 Flow Rate FiO2 03/28/18 12:06 97.3 69 18 111/58 (75) 95 03/28/18 12:00 Room Air 03/28/18 08:06 97.0 75 18 135/70 (91) 95 03/28/18 08:00 Room Air 03/28/18 04:00 97.8 80 20 154/74 (100) 97 03/28/18 00:00 97.6 80 20 125/80 (95) 95 03/27/18 20:15 Room Air 03/27/18 20:00 97.6 76 20 125/59 (81) 96 03/27/18 16:09 97.4 68 18 116/69 (85) 98 03/27/18 16:00 Room Air I/O 03/27/18 03/27/18 03/27/18 03/28/18 03/28/18 03/28/18 07:00 15:00 23:00 07:00 15:00 23:00 Intake Total 800 ml 960 ml 1250 ml Output Total 1175 ml 1350 ml 1440 ml Balance -375 ml -390 ml -190 ml Intake Oral 800 ml 960 ml 1250 ml Output Urine Total 1175 ml 1350 ml 1440 ml # Bowel Movements 0 Result Diagram: 03/28/18 0633 03/28/18 06 Other Results Laboratory Tests Test 03/28/18 06:33 White Blood Count 5.2 TH/MM3 Red Blood Count 5.10 MIL/MM3 Hemoglobin 15.5 GM/DL Hematocrit 45.3 % Mean Corpuscular Volume 88.8 FL Mean Corpuscular Hemoglobin 30.4 PG Mean Corpuscular Hemoglobin Concent 34.2 % Red Cell Distribution Width 14.4 % Platelet Count 181 TH/MM3 Mean Platelet Volume 8.1 FL Neutrophils (%) (Auto) 58.2 % Lymphocytes (%) (Auto) 29.1 % Monocytes (%) (Auto) 10.1 % Eosinophils (%) (Auto) 1.7 % Basophils (%) (Auto) 0.9 % Neutrophils # (Auto) 3.1 TH/MM3 Lymphocytes # (Auto) 1.5 TH/MM3 Monocytes # (Auto) 0.5 TH/MM3 Eosinophils # (Auto) 0.1 TH/MM3 Basophils # (Auto) 0.0 TH/MM3 CBC Comment DIFF FINAL Differential Comment Blood Urea Nitrogen 23 MG/DL Creatinine 0.90 MG/DL Random Glucose 127 MG/DL Total Protein 7.8 GM/DL Albumin 4.0 GM/DL Calcium Level 9.1 MG/DL Phosphorus Level 3.1 MG/DL Magnesium Level 2.2 MG/DL Alkaline Phosphatase 62 U/L Aspartate Amino Transf (AST/SGOT) 17 U/L Alanine Aminotransferase (ALT/SGPT) 24 U/L Total Bilirubin 1.0 MG/DL Sodium Level 141 MEQ/L Potassium Level 3.8 MEQ/L Chloride Level 104 MEQ/L Carbon Dioxide Level 30.1 MEQ/L Anion Gap 7 MEQ/L Estimat Glomerular Filtration Rate 81 ML/MIN Free Thyroxine 0.90 NG/DL Thyroid Stimulating Hormone 3rd Gen 3.490 uIU/ML Imaging Last Impressions Chest X-Ray 03/13/18 1121 Signed Impressions: Service Date/Time: Tuesday, March 13, 2018 12:23 - CONCLUSION: Cardiomegaly with no definite acute cardiopulmonary disease. Leo Martinez MD Objective Remarks GENERAL: Very hard of hearing awake and alert and oriented 3 talkative and cooperative SKIN: Warm and dry. HEAD: Atraumatic. Normocephalic. EYES: Pupils equal and round. No scleral icterus. No injection or drainage. Extraocular muscles intact ENT: No nasal bleeding or discharge. Mucous membranes pink and moist. Tongue is midline NECK: Trachea midline. No JVD. CARDIOVASCULAR:IRRegular rate and rhythm. S1-S2 no S3-S4 RESPIRATORY: No accessory muscle use. Clear to auscultation. Breath sounds equal bilaterally. GASTROINTESTINAL: Abdomen soft, non-tender, nondistended. Hepatic and splenic margins not palpable. MUSCULOSKELETAL: Extremities without clubbing, cyanosis, or edema. No obvious deformities. NEUROLOGICAL: Awake and alert. No obvious cranial nerve deficits. Motor grossly within normal limits. 4 out of 5 muscle strength in the arms and legs. Normal speech. PSYCHIATRIC: INAppropriate mood and affect; insight and judgment ABnormal. Procedures None Medications and IVs Current Medications Insulin Aspart (NovoLOG INJ) 15 units ONCE ONCE SQ Last administered on at 10:43; Start 03/13/18 at 10:00; Stop 03/13/18 at 10:01; Status DC Sodium Chloride (NS Flush) 2 ml UNSCH PRN IVF FLUSH AFTER USING IV ACCESS; Start 03/13/18 at 11:15; Stop 03/13/18 at 17:55; Status DC Sodium Chloride (NS Flush) 2 ml UNSCH PRN IV FLUSH FLUSH AFTER USING IV ACCESS ; Start 03/13/18 at 12:00 Sodium Chloride (NS Flush) 2 ml BID IV FLUSH Last administered on 03/28/18at 08: 36; Start 03/13/18 at 21:00 Acetaminophen (Tylenol) 650 mg Q4H PRN PO TEMP > 100.4, headache Last administered on 03/27/18at 22:35; Start 03/13/18 at 12:00 Ondansetron HCl (Zofran Inj) 4 mg Q6H PRN IVP NAUSEA OR VOMITING; Start at 12:00 Naloxone HCl (Narcan Inj) 0.4 mg UNSCH PRN IV PUSH SEE LABEL COMMENTS; Start at 12:00 Magnesium Hydroxide (Milk Of Magnesia Liq) 30 ml Q12H PRN PO Mild constipation ; Start 03/13/18 at 12:00 Sennosides (Senokot) 17.2 mg Q12H PRN PO Moderate constipation Last administered on 03/23/18at 12:21; Start 03/13/18 at 12:00 Bisacodyl (Dulcolax Supp) 10 mg DAILY PRN RECTAL SEVERE CONSITIPATION; Start at 12:00 Lactulose (Lactulose Liq) 30 ml DAILY PRN PO SEVERE CONSITIPATION; Start at 12:00 Atorvastatin Calcium (Lipitor) 40 mg HS PO Last administered on 03/27/18at 21:15 ; Start 03/13/18 at 21:00 Insulin Detemir (Levemir Inj) 45 units HS SQ ; Start 03/13/18 at 21:00; Stop 03/13 at 21:00; Status DC Fluticasone Propionate (Flonase Irving Spr) 1 spray BID EACH NARE Last administered on 03/28/18at 08:37; Start 03/13/18 at 21:00 Dextrose (D50w (Vial) Inj) 50 ml UNSCH PRN IV PUSH HYPOGLYCEMIA-SEE COMMENTS; Start 03/13/18 at 14:00 Glucagon (Glucagon Inj) 1 mg UNSCH PRN OTHER HYPOGLYCEMIA-SEE COMMENTS; Start 03/13/18 at 14:00 Insulin Aspart (NovoLOG SUPPLEMENTAL SCALE) 1 ACHS SLIDING SCALE SQ Last administered on 03/14/18at 13:21; Start 03/13/18 at 17:00; Stop 03/14/18 at 14:25; Status DC Insulin Detemir (Levemir Inj) 10 units HS SQ Last administered on 03/13/18at 22: 59; Start 03/13/18 at 21:00; Stop 03/14/18 at 14:25; Status DC Apixaban (Eliquis) 5 mg BID PO Last administered on 03/28/18at 08:36; Start 03/13 at 21:00 Metoprolol Tartrate (Lopressor) 25 mg Q12HR PO Last administered on 03/28/18 08:36; Start 03/13/18 at 21:00 Clonidine (Catapres) 0.1 mg Q6H PRN PO SBP>160, DBP>90 Last administered on 03/14at 10:25; Start 03/14/18 at 08:15 Insulin Detemir (Levemir Inj) 15 units HS SQ Last administered on 03/27/18at 21: 14; Start 03/14/18 at 21:00 Insulin Aspart (NovoLOG SUPPLEMENTAL SCALE) 1 ACHS SLIDING SCALE SQ Last administered on 03/28/18 13:06; Start 03/14/18 at 17:00 Nifedipine (Procardia Xl) 30 mg DAILY PO Last administered on 03/28/18 08:36; Start 03/15/18 at 09:00 Nifedipine (Procardia Xl) 30 mg ONCE ONCE PO Last administered on 03/14/18 14: 57; Start 03/14/18 at 14:45; Stop 03/14/18 at 14:46; Status DC Temazepam (Restoril) 15 mg ONCE ONCE PO Last administered on 03/21/18at 02:00; Start 03/21/18 at 01:45; Stop 03/21/18 at 01:46; Status DC Melatonin (Melatonin) 5 mg ONCE ONCE PO Last administered on 03/24/18at 00:13; Start 03/23/18 at 23:30; Stop 03/23/18 at 23:31; Status DC A/P Problem List: (1) Impaired mobility and ADLs ICD Code: Z74.09 - Other reduced mobility Status: Acute (2) Atrial fibrillation ICD Code: I48.91 - Atrial fibrillation Status: Acute (3) Diabetes mellitus ICD Code: E11.9 - Diabetes mellitus Status: Acute (4) Hypertension ICD Code: I10 - Hypertension Status: Acute Assessment and Plan 1. Inability to care for self: Discussed case management, patient apparently at this time has no living residence option, near his family is out of town.. Insurance has denied for second time prison facility. Life insurance policy details are pending, has a place at an [facility] once approved. Still pending details DEFER TO FOR PLACEMENT 2. Atrial fibrillation: Continue Apixaban, metoprolol. 3. Diabetes mellitus: Continue Levemir. Monitor Accu-checks and cover with sliding scale insulin. A1c 6.8. 4. Hypertension: Continue nifedipine, metoprolol. 5. Hyperlipidemia: Continue Lipitor. 6. DVT prophylaxis: Apixaban. AWAIT SNF ACCEPTANCE Discharge Planning We will need SNF or [facility] at discharge DIFFICULT PLACEMENT DUE TO FAMILY NOT LOCAL AND FINANCIAL STATUS Suleiman Ellison DO March 28, 2018 14:26
[2018-03-28 15:49] LABS: HEMOGLOBIN A1C 6.9 % (4.3-6.0)
[2018-03-28] MEDS: ACETAMINOPHEN 325 MG TAB PO PRN ×2 (16:01→21:15)
[2018-03-28 16:13] VITALS: BP 131/76; PULSE 72; RESP 18; TEMP 97.3; O2SAT 96
[2018-03-28 20:59] VITALS: BP 147/77; PULSE 73; RESP 20; TEMP 97.5; O2SAT 95
[2018-03-28] MEDS: INSULIN DETEMIR 100 UNITS/ML VIAL SQ SCH (21:00)
[2018-03-28] MEDS: ATORVASTATIN 40 MG TAB PO SCH (21:15)
[2018-03-29] MEDS: ACETAMINOPHEN 325 MG TAB PO PRN ×3 (01:31→20:35)
[2018-03-29 04:59] VITALS: BP 150/66; PULSE 73; RESP 24; TEMP 97.4; O2SAT 97
[2018-03-29 08:00] VITALS: BP 147/71; PULSE 67; RESP 20; TEMP 97.3; O2SAT 94
[2018-03-29] MEDS: INSULIN ASPART SUPPLEMENTAL SCALE SQ SCH ×4 (08:03→20:36)
[2018-03-29] MEDS: FLUTICASONE PROPIONATE 50 MCG/ACT 16 GM NASAL SPRAY EACH NARE SCH ×2 (08:13→20:36)
[2018-03-29] MEDS: SODIUM CHLORIDE 0.9% FLUSH 10 ML FLUSH IV FLUSH SCH ×2 (08:13→20:36)
[2018-03-29] MEDS: METOPROLOL TARTRATE 25 MG TAB PO SCH ×2 (08:14→20:35)
[2018-03-29] MEDS: APIXABAN 5 MG TABLET PO SCH ×2 (08:14→20:35)
[2018-03-29] MEDS: NIFEdipine 30 MG SUSTAINED RELEASE TAB PO SCH (08:14)
[2018-03-29 12:00] VITALS: BP 131/72; PULSE 74; RESP 20; TEMP 97.5; O2SAT 96
--- NOTE | 2018-03-29 13:34 | HHI.PR ---
Subjective Remarks 5-15 Nursing denies any deterioration since last night. No new complaints have been reported by the patient. Is eating by himself sitting up in his chair. -16 NO NEW COMPLAINTS WANTS TO GO HOME BUT NOT A SAFE DC TO HOME AWAIT FAMILY HELP FOR PLACEMENT -17 AWAIT SNF TOMORROW NO NEW COMPLAINTS DW RN AND PT -18 DC TO SNF TODAY IF BED IS AVAILABLE Objective Vitals Vital Signs Date Time Temp Pulse Resp B/P (MAP) Pulse Ox O2 Delivery O2 Flow Rate FiO2 03/29/18 12:00 97.5 74 20 131/72 (91) 96 03/29/18 09:05 Room Air 03/29/18 08:00 97.3 67 20 147/71 (96) 94 03/29/18 04:59 97.4 73 24 150/66 (94) 97 03/29/18 02:31 16 03/28/18 20:59 97.5 73 20 147/77 (100) 95 03/28/18 20:45 Room Air 03/28/18 16:13 97.3 72 18 131/76 (94) 96 03/28/18 16:00 Room Air I/O 03/28/18 03/28/18 03/28/18 03/29/18 03/29/18 03/29/18 07:00 15:00 23:00 07:00 15:00 23:00 Intake Total 1250 ml 960 ml 350 ml 120 ml Output Total 1440 ml 980 ml 2400 ml Balance -190 ml -20 ml -2050 ml 120 ml Intake Oral 1250 ml 960 ml 350 ml 120 ml Output Urine Total 1440 ml 980 ml 2400 ml # Voids 1 1 # Bowel Movements 1 Result Diagram: 03/28/1863203/28/18632 Other Results Laboratory Tests Test 03/28/18 06:33 White Blood Count 5.2 TH/MM3 Red Blood Count 5.10 MIL/MM3 Hemoglobin 15.5 GM/DL Hematocrit 45.3 % Mean Corpuscular Volume 88.8 FL Mean Corpuscular Hemoglobin 30.4 PG Mean Corpuscular Hemoglobin Concent 34.2 % Red Cell Distribution Width 14.4 % Platelet Count 181 TH/MM3 Mean Platelet Volume 8.1 FL Neutrophils (%) (Auto) 58.2 % Lymphocytes (%) (Auto) 29.1 % Monocytes (%) (Auto) 10.1 % Eosinophils (%) (Auto) 1.7 % Basophils (%) (Auto) 0.9 % Neutrophils # (Auto) 3.1 TH/MM3 Lymphocytes # (Auto) 1.5 TH/MM3 Monocytes # (Auto) 0.5 TH/MM3 Eosinophils # (Auto) 0.1 TH/MM3 Basophils # (Auto) 0.0 TH/MM3 CBC Comment DIFF FINAL Differential Comment Blood Urea Nitrogen 23 MG/DL Creatinine 0.90 MG/DL Random Glucose 127 MG/DL Total Protein 7.8 GM/DL Albumin 4.0 GM/DL Calcium Level 9.1 MG/DL Phosphorus Level 3.1 MG/DL Magnesium Level 2.2 MG/DL Alkaline Phosphatase 62 U/L Aspartate Amino Transf (AST/SGOT) 17 U/L Alanine Aminotransferase (ALT/SGPT) 24 U/L Total Bilirubin 1.0 MG/DL Sodium Level 141 MEQ/L Potassium Level 3.8 MEQ/L Chloride Level 104 MEQ/L Carbon Dioxide Level 30.1 MEQ/L Anion Gap 7 MEQ/L Estimat Glomerular Filtration Rate 81 ML/MIN Hemoglobin A1c 6.9 % Free Thyroxine 0.90 NG/DL Thyroid Stimulating Hormone 3rd Gen 3.490 uIU/ML Imaging Last Impressions Chest X-Ray 03/13/18 1121 Signed Impressions: Service Date/Time: Tuesday, March 13, 2018 12:23 - CONCLUSION: Cardiomegaly with no definite acute cardiopulmonary disease. Leo Martinez MD Objective Remarks GENERAL: Very hard of hearing awake and alert and oriented 3 talkative and cooperative SKIN: Warm and dry. HEAD: Atraumatic. Normocephalic. EYES: Pupils equal and round. No scleral icterus. No injection or drainage. Extraocular muscles intact ENT: No nasal bleeding or discharge. Mucous membranes pink and moist. Tongue is midline NECK: Trachea midline. No JVD. CARDIOVASCULAR:IRRegular rate and rhythm. S1-S2 no S3-S4 RESPIRATORY: No accessory muscle use. Clear to auscultation. Breath sounds equal bilaterally. GASTROINTESTINAL: Abdomen soft, non-tender, nondistended. Hepatic and splenic margins not palpable. MUSCULOSKELETAL: Extremities without clubbing, cyanosis, or edema. No obvious deformities. NEUROLOGICAL: Awake and alert. No obvious cranial nerve deficits. Motor grossly within normal limits. 4 out of 5 muscle strength in the arms and legs. Normal speech. PSYCHIATRIC: INAppropriate mood and affect; insight and judgment ABnormal. Procedures None Medications and IVs Current Medications Insulin Aspart (NovoLOG INJ) 15 units ONCE ONCE SQ Last administered on at 10:43; Start 03/13/18 at 10:00; Stop 03/13/18 at 10:01; Status DC Sodium Chloride (NS Flush) 2 ml UNSCH PRN IVF FLUSH AFTER USING IV ACCESS; Start 03/13/18 at 11:15; Stop 03/13/18 at 17:55; Status DC Sodium Chloride (NS Flush) 2 ml UNSCH PRN IV FLUSH FLUSH AFTER USING IV ACCESS ; Start 03/13/18 at 12:00 Sodium Chloride (NS Flush) 2 ml BID IV FLUSH Last administered on 03/29/18at 08: 13; Start 03/13/18 at 21:00 Acetaminophen (Tylenol) 650 mg Q4H PRN PO TEMP > 100.4, headache Last administered on 03/29/18at 01:31; Start 03/13/18 at 12:00 Ondansetron HCl (Zofran Inj) 4 mg Q6H PRN IVP NAUSEA OR VOMITING; Start at 12:00 Naloxone HCl (Narcan Inj) 0.4 mg UNSCH PRN IV PUSH SEE LABEL COMMENTS; Start at 12:00 Magnesium Hydroxide (Milk Of Magnesia Liq) 30 ml Q12H PRN PO Mild constipation ; Start 03/13/18 at 12:00 Sennosides (Senokot) 17.2 mg Q12H PRN PO Moderate constipation Last administered on 03/23/18at 12:21; Start 03/13/18 at 12:00 Bisacodyl (Dulcolax Supp) 10 mg DAILY PRN RECTAL SEVERE CONSITIPATION; Start at 12:00 Lactulose (Lactulose Liq) 30 ml DAILY PRN PO SEVERE CONSITIPATION; Start at 12:00 Atorvastatin Calcium (Lipitor) 40 mg HS PO Last administered on 03/28/18at 21:15 ; Start 03/13/18 at 21:00 Insulin Detemir (Levemir Inj) 45 units HS SQ ; Start 03/13/18 at 21:00; Stop 03/13 at 21:00; Status DC Fluticasone Propionate (Flonase Irving Spr) 1 spray BID EACH NARE Last administered on 03/29/18at 08:13; Start 03/13/18 at 21:00 Dextrose (D50w (Vial) Inj) 50 ml UNSCH PRN IV PUSH HYPOGLYCEMIA-SEE COMMENTS; Start 03/13/18 at 14:00 Glucagon (Glucagon Inj) 1 mg UNSCH PRN OTHER HYPOGLYCEMIA-SEE COMMENTS; Start 03/13/18 at 14:00 Insulin Aspart (NovoLOG SUPPLEMENTAL SCALE) 1 ACHS SLIDING SCALE SQ Last administered on 03/14/18at 13:21; Start 03/13/18 at 17:00; Stop 03/14/18 at 14:25; Status DC Insulin Detemir (Levemir Inj) 10 units HS SQ Last administered on 03/13/18at 22: 59; Start 03/13/18 at 21:00; Stop 03/14/18 at 14:25; Status DC Apixaban (Eliquis) 5 mg BID PO Last administered on 03/29/18at 08:14; Start 03/13 at 21:00 Metoprolol Tartrate (Lopressor) 25 mg Q12HR PO Last administered on 03/29/18at 08:14; Start 03/13/18 at 21:00 Clonidine (Catapres) 0.1 mg Q6H PRN PO SBP>160, DBP>90 Last administered on 03/14at 10:25; Start 03/14/18 at 08:15 Insulin Detemir (Levemir Inj) 15 units HS SQ Last administered on 03/28/18at 21: 00; Start 03/14/18 at 21:00 Insulin Aspart (NovoLOG SUPPLEMENTAL SCALE) 1 ACHS SLIDING SCALE SQ Last administered on 03/29/18at 13:13; Start 03/14/18 at 17:00 Nifedipine (Procardia Xl) 30 mg DAILY PO Last administered on 03/29/18at 08:14; Start 03/15/18 at 09:00 Nifedipine (Procardia Xl) 30 mg ONCE ONCE PO Last administered on 03/14/18at 14: 57; Start 03/14/18 at 14:45; Stop 03/14/18 at 14:46; Status DC Temazepam (Restoril) 15 mg ONCE ONCE PO Last administered on 03/21/18at 02:00; Start 03/21/18 at 01:45; Stop 03/21/18 at 01:46; Status DC Melatonin (Melatonin) 5 mg ONCE ONCE PO Last administered on 03/24/18at 00:13; Start 03/23/18 at 23:30; Stop 03/23/18 at 23:31; Status DC A/P Problem List: (1) Impaired mobility and ADLs ICD Code: Z74.09 - Other reduced mobility Status: Acute (2) Atrial fibrillation ICD Code: I48.91 - Atrial fibrillation Status: Acute (3) Diabetes mellitus ICD Code: E11.9 - Diabetes mellitus Status: Acute (4) Hypertension ICD Code: I10 - Hypertension Status: Acute Assessment and Plan 1. Inability to care for self: Discussed case management, patient apparently at this time has no living residence option, near his family is out of town.. Insurance has denied for second time [facility] facility. Life insurance policy details are pending, has a place at an [facility] once approved. Still pending details DEFER TO FOR PLACEMENT 2. Atrial fibrillation: Continue Apixaban, metoprolol. 3. Diabetes mellitus: Continue Levemir. Monitor Accu-checks and cover with sliding scale insulin. A1c 6.8. 4. Hypertension: Continue nifedipine, metoprolol. 5. Hyperlipidemia: Continue Lipitor. 6. DVT prophylaxis: Apixaban. AWAIT SNF ACCEPTANCE Discharge Planning We will need SNF or [facility] at discharge DIFFICULT PLACEMENT DUE TO FAMILY NOT LOCAL AND FINANCIAL STATUS DC TO SNF Suleiman Ellison DO March 29, 2018 13:34
[2018-03-29] MEDS ORDERED: SENN187 PO (13:36)
--- NOTE | 2018-03-29 13:38 | HHI.DS ---
Discharge Summary Admission Date March 13, 2018 at 11:34 Discharge Date: March 29, 2018 Admitting Diagnosis Unable to care for self/Diabetes/Difficulty ambulating/Fall Risk (1) Impaired mobility and ADLs ICD Code: Z74.09 - Other reduced mobility Diagnosis: Principal Status: Acute (2) Atrial fibrillation ICD Code: I48.91 - Atrial fibrillation Diagnosis: Secondary Status: Acute (3) Diabetes mellitus ICD Code: E11.9 - Diabetes mellitus Diagnosis: Secondary Status: Acute (4) Hypertension ICD Code: I10 - Hypertension Diagnosis: Secondary Status: Acute Procedures None Brief History - From Admission Mr. Calderon is a pleasant 83 year old male with a history of Afib, Diabetes, HTN who was brought to the hospital under schmid act due to inability to care for himself and poor living conditions. He lives alone and apparently has been in touch with [employer] on [place] to clean up his house. Today, he went to the store and assistant grocery store manager noted that patient is not able to even go to his car properly. His pants fell and he tried to pull it up. Police was called and they took him home where they noticed extremely poor condition. Subsequently, patient was brought to the hospital for an evaluation. Patient was evaluated by psychiatry who lifted schmid act. Case management was consulted for placement help. Patient wants to go home but he is fine with going to a shelter or assisted living for a short while and then go home. He denies any chest pain, shortness of breath, fever, chills. No dysuria, hematuria. No changes in bowel habits. CBC/BMP: 03/28/18 0633 03/28/18 0633 Significant Findings Laboratory Tests Test 03/28/18 06:33 Monocytes (%) (Auto) 10.1 % (0.0-8.0) Blood Urea Nitrogen 23 MG/DL (7-18) Random Glucose 127 MG/DL (74-106) Estimat Glomerular Filtration Rate 81 ML/MIN (>89) Hemoglobin A1c 6.9 % (4.3-6.0) Imaging Last Impressions Chest X-Ray 03/13/18 1121 Signed Impressions: Service Date/Time: Tuesday, March 13, 2018 12:23 - CONCLUSION: Cardiomegaly with no definite acute cardiopulmonary disease. Leo Martinez MD PE at Discharge GENERAL: Very hard of hearing awake and alert and oriented 3 talkative and cooperative SKIN: Warm and dry. HEAD: Atraumatic. Normocephalic. EYES: Pupils equal and round. No scleral icterus. No injection or drainage. Extraocular muscles intact ENT: No nasal bleeding or discharge. Mucous membranes pink and moist. Tongue is midline NECK: Trachea midline. No JVD. CARDIOVASCULAR:IRRegular rate and rhythm. S1-S2 no S3-S4 RESPIRATORY: No accessory muscle use. Clear to auscultation. Breath sounds equal bilaterally. GASTROINTESTINAL: Abdomen soft, non-tender, nondistended. Hepatic and splenic margins not palpable. MUSCULOSKELETAL: Extremities without clubbing, cyanosis, or edema. No obvious deformities. NEUROLOGICAL: Awake and alert. No obvious cranial nerve deficits. Motor grossly within normal limits. 4 out of 5 muscle strength in the arms and legs. Normal speech. PSYCHIATRIC: INAppropriate mood and affect; insight and judgment ABnormal. Hospital Course Mr. Calderon is a pleasant 83 year old male with a history of Afib, Diabetes, HTN who was brought to the hospital under [employer] act due to inability to care for himself and poor living conditions. He lives alone and apparently has been in touch with [employer] [place] to clean up his house. Today, he went to the store and assistant grocery store manager noted that patient is not able to even go to his car properly. His pants fell and he tried to pull it up. Police was called and they took him home where they noticed extremely poor condition. Subsequently, patient was brought to the hospital for an evaluation. Patient was evaluated by psychiatry who lifted schmid act. Case management was consulted for placement help. Patient wants to go home but he is fine with going to a shelter or assisted living for a short while and then go home. He denies any chest pain, shortness of breath, fever, chills. No dysuria, hematuria. No changes in bowel habits. 5-15 Nursing denies any deterioration since last night. No new complaints have been reported by the patient. Is eating by himself sitting up in his chair. 5-16 NO NEW COMPLAINTS WANTS TO GO HOME BUT NOT A SAFE DC TO HOME AWAIT FAMILY HELP FOR PLACEMENT 5-17 AWAIT SNF TOMORROW NO NEW COMPLAINTS DW RN AND PT DC TO SNF NOT ABLE TO TAKE CARE OF HIMSELF Pt Condition on Discharge: Good Discharge Disposition: Discharge to SNF Discharge Time: > 30 minutes Discharge Instructions DIET: Follow Instructions for: Diabetic Diet Speech Therapy-Diet Recommends: Regular Activities you can perform: Regular-No Restrictions Follow up Referrals: SNF/[facility]/ New Medications: Insulin Aspart Inj (Novolog Inj) 1,000 Unit/10 Ml Vial 1-9 UNITS SQ ACHS for Blood Sugar Management, #10 ML 0 Refills Max dose at bedtime:( )units; sugars less than 70,(0)units; sugars 150-199,(1) unit; sugars 200-249,(3) units; sugars 250-299,(5) units; sugars 300-349,(7) units; sugars greater than 349,(9) units Sennosides (Senna-Lax) 8.6 Mg Tab 2 TAB PO BID for Constipation, #120 TAB Apixaban (Eliquis) 5 Mg Tab 5 MG PO BID for Blood Clot Prevention, #60 TAB 11 Refills Insulin Detemir Inj (Levemir Inj) 1,000 unit/ 10 ML Vial 15 UNITS SQ HS for Blood Sugar Management for 30 Days, INJECTION Do not mix with any other Insulin. Metoprolol Tartrate (Metoprolol Tartrate) 25 Mg Tab 25 MG PO Q12HR for Afib, #60 TAB 4 Refills Nifedipine ER 24 HR (Nifedipine ER 24 HR) 30 Mg Tab 30 MG PO DAILY for Blood Pressure Management, #30 TAB 11 Refills Continued Medications: Allopurinol (Zyloprim) 100 Mg Tab 100 MG PO DAILY for Gout, #30 TAB 0 Refills Atorvastatin (Lipitor) 40 Mg Tab 40 MG PO HS for Cholesterol Management, #30 TAB 0 Refills Fluticasone Nasal [place] (Flonase Nasal [place]) 50 Mcg/Act [place] 1 SPRAY EACH NARE BID for Allergies, #1 BOTTLE 0 Refills Sitagliptin (Januvia) 50 Mg Tab 50 MG PO DAILY for Blood Sugar Management, #30 TAB 0 Refills Discontinued Medications: Digoxin (Lanoxin) 250 Mcg Tablet 250 MCG PO DAILY, TAB 0 Refills Furosemide (Lasix) 40 Mg Tab 40 MG PO DAILY, #30 TAB 0 Refills Hydrochlorothiazide (Hydrochlorothiazide) 25 Mg Tab 25 MG PO DAILY, #30 TAB 0 Refills Insulin Aspart Inj (Novolog Inj) 1,000 Unit/10 Ml Vial 15-20 UNITS SQ TIDAC for Blood Sugar Management, #10 ML 0 Refills Sliding Scale as directed. Insulin Glargine Inj (Lantus Inj) 100 Unit/Ml Inj 45 UNITS SQ HS Potassium Chloride ER (Potassium Chloride ER) 10 Meq Tab 10 MEQ PO DAILY for Electrolyte Replacement, #30 TAB 0 Refills Warfarin (Coumadin) 4 Mg Tab 8 MG PO DAILY for Prevent Blood Clot, #30 TAB 0 Refills Suleiman Ellison DO March 29, 2018 13:38
[2018-03-29 16:00] VITALS: BP 147/73; PULSE 77; RESP 20; TEMP 98.4; O2SAT 95
[2018-03-29 20:00] VITALS: BP 123/77; PULSE 82; RESP 18; TEMP 98.4; O2SAT 94
[2018-03-29] MEDS: INSULIN DETEMIR 100 UNITS/ML VIAL SQ SCH (20:35)
[2018-03-29] MEDS: ATORVASTATIN 40 MG TAB PO SCH (20:35)
[2018-03-30] VITALS: BP 132/66; PULSE 72; RESP 18; TEMP 98.2; O2SAT 95
[2018-03-30 04:00] VITALS: BP 141/67; PULSE 69; RESP 19; TEMP 98; O2SAT 96
[2018-03-30 08:00] VITALS: BP 153/71; PULSE 75; RESP 16; TEMP 97.4; O2SAT 94
[2018-03-30] MEDS: INSULIN ASPART SUPPLEMENTAL SCALE SQ SCH ×4 (08:00→21:58)
[2018-03-30] MEDS: APIXABAN 5 MG TABLET PO SCH ×2 (08:41→21:54)
[2018-03-30] MEDS: NIFEdipine 30 MG SUSTAINED RELEASE TAB PO SCH (08:42)
[2018-03-30] MEDS: METOPROLOL TARTRATE 25 MG TAB PO SCH ×2 (08:42→21:54)
[2018-03-30] MEDS: SODIUM CHLORIDE 0.9% FLUSH 10 ML FLUSH IV FLUSH SCH ×2 (08:42→21:55)
[2018-03-30] MEDS: ACETAMINOPHEN 325 MG TAB PO PRN ×3 (08:45→23:42)
[2018-03-30] MEDS: FLUTICASONE PROPIONATE 50 MCG/ACT 16 GM NASAL SPRAY EACH NARE SCH ×2 (08:45→21:55)
--- NOTE | 2018-03-30 11:45 | HHI.PR ---
Subjective Remarks 5-15 Nursing denies any deterioration since last night. No new complaints have been reported by the patient. Is eating by himself sitting up in his chair. -16 NO NEW COMPLAINTS WANTS TO GO HOME BUT NOT A SAFE DC TO HOME AWAIT FAMILY HELP FOR PLACEMENT 5-17 AWAIT SNF TOMORROW NO NEW COMPLAINTS DW RN AND PT 5-18 DC TO SNF TODAY IF BED IS AVAILABLE 5- AWAIT SNF PLACEMENT NO NEW COMPLAINTS WANTS TO LEAVE THE HOSPITAL NEEDS SAFE DISCHARGE CANNOT LIVE ALONE AT THIS TIME Objective Vitals Vital Signs Date Time Temp Pulse Resp B/P (MAP) Pulse Ox O2 Delivery O2 Flow Rate FiO2 03/30/18 08:00 97.4 75 16 153/71 (98) 94 03/30/18 04:00 98.0 69 19 141/67 (91) 96 03/30/18 00:00 98.2 72 18 132/66 (88) 95 03/29/18 21:35 16 03/29/18 20:00 98.4 82 18 123/77 (92) 94 03/29/18 20:00 Room Air 03/29/18 16:00 98.4 77 20 147/73 (97) 95 03/29/18 12:00 97.5 74 20 131/72 (91) 96 I/O 03/29/18 03/29/18 03/29/18 03/30/18 03/30/18 03/30/18 07:00 15:00 23:00 07:00 15:00 23:00 Intake Total 350 ml 360 ml 560 ml 800 ml Output Total 2400 ml 1100 ml 1600 ml Balance -2050 ml 360 ml -540 ml -800 ml Intake Oral 350 ml 360 ml 560 ml 800 ml Output Urine Total 2400 ml 1100 ml 1600 ml # Voids 1 # Bowel Movements 1 Result Diagram: 03/28/18 0633 03/28/18 0633 Other Results Laboratory Tests Test 03/28/18 06:33 White Blood Count 5.2 TH/MM3 Red Blood Count 5.10 MIL/MM3 Hemoglobin 15.5 GM/DL Hematocrit 45.3 % Mean Corpuscular Volume 88.8 FL Mean Corpuscular Hemoglobin 30.4 PG Mean Corpuscular Hemoglobin Concent 34.2 % Red Cell Distribution Width 14.4 % Platelet Count 181 TH/MM3 Mean Platelet Volume 8.1 FL Neutrophils (%) (Auto) 58.2 % Lymphocytes (%) (Auto) 29.1 % Monocytes (%) (Auto) 10.1 % Eosinophils (%) (Auto) 1.7 % Basophils (%) (Auto) 0.9 % Neutrophils # (Auto) 3.1 TH/MM3 Lymphocytes # (Auto) 1.5 TH/MM3 Monocytes # (Auto) 0.5 TH/MM3 Eosinophils # (Auto) 0.1 TH/MM3 Basophils # (Auto) 0.0 TH/MM3 CBC Comment DIFF FINAL Differential Comment Blood Urea Nitrogen 23 MG/DL Creatinine 0.90 MG/DL Random Glucose 127 MG/DL Total Protein 7.8 GM/DL Albumin 4.0 GM/DL Calcium Level 9.1 MG/DL Phosphorus Level 3.1 MG/DL Magnesium Level 2.2 MG/DL Alkaline Phosphatase 62 U/L Aspartate Amino Transf (AST/SGOT) 17 U/L Alanine Aminotransferase (ALT/SGPT) 24 U/L Total Bilirubin 1.0 MG/DL Sodium Level 141 MEQ/L Potassium Level 3.8 MEQ/L Chloride Level 104 MEQ/L Carbon Dioxide Level 30.1 MEQ/L Anion Gap 7 MEQ/L Estimat Glomerular Filtration Rate 81 ML/MIN Hemoglobin A1c 6.9 % Free Thyroxine 0.90 NG/DL Thyroid Stimulating Hormone 3rd Gen 3.490 uIU/ML Imaging Last Impressions Chest X-Ray 03/13/18 1121 Signed Impressions: Service Date/Time: Tuesday, March 13, 2018 12:23 - CONCLUSION: Cardiomegaly with no definite acute cardiopulmonary disease. Leo Martinez MD Objective Remarks GENERAL: Very hard of hearing awake and alert and oriented 3 talkative and cooperative SKIN: Warm and dry. HEAD: Atraumatic. Normocephalic. EYES: Pupils equal and round. No scleral icterus. No injection or drainage. Extraocular muscles intact ENT: No nasal bleeding or discharge. Mucous membranes pink and moist. Tongue is midline NECK: Trachea midline. No JVD. CARDIOVASCULAR:IRRegular rate and rhythm. S1-S2 no S3-S4 RESPIRATORY: No accessory muscle use. Clear to auscultation. Breath sounds equal bilaterally. GASTROINTESTINAL: Abdomen soft, non-tender, nondistended. Hepatic and splenic margins not palpable. MUSCULOSKELETAL: Extremities without clubbing, cyanosis, or edema. No obvious deformities. NEUROLOGICAL: Awake and alert. No obvious cranial nerve deficits. Motor grossly within normal limits. 4 out of 5 muscle strength in the arms and legs. Normal speech. PSYCHIATRIC: INAppropriate mood and affect; insight and judgment ABnormal. Procedures None Medications and IVs Current Medications Insulin Aspart (NovoLOG INJ) 15 units ONCE ONCE SQ Last administered on at 10:43; Start 03/13/18 at 10:00; Stop 03/13/18 at 10:01; Status DC Sodium Chloride (NS Flush) 2 ml UNSCH PRN IVF FLUSH AFTER USING IV ACCESS; Start 03/13/18 at 11:15; Stop 03/13/18 at 17:55; Status DC Sodium Chloride (NS Flush) 2 ml UNSCH PRN IV FLUSH FLUSH AFTER USING IV ACCESS ; Start 03/13/18 at 12:00 Sodium Chloride (NS Flush) 2 ml BID IV FLUSH Last administered on 03/30/18at 08: 42; Start 03/13/18 at 21:00 Acetaminophen (Tylenol) 650 mg Q4H PRN PO TEMP > 100.4, headache Last administered on 03/30/18at 08:45; Start 03/13/18 at 12:00 Ondansetron HCl (Zofran Inj) 4 mg Q6H PRN IVP NAUSEA OR VOMITING; Start at 12:00 Naloxone HCl (Narcan Inj) 0.4 mg UNSCH PRN IV PUSH SEE LABEL COMMENTS; Start at 12:00 Magnesium Hydroxide (Milk Of Magnesia Liq) 30 ml Q12H PRN PO Mild constipation ; Start 03/13/18 at 12:00 Sennosides (Senokot) 17.2 mg Q12H PRN PO Moderate constipation Last administered on 03/23/18at 12:21; Start 03/13/18 at 12:00 Bisacodyl (Dulcolax Supp) 10 mg DAILY PRN RECTAL SEVERE CONSITIPATION; Start at 12:00 Lactulose (Lactulose Liq) 30 ml DAILY PRN PO SEVERE CONSITIPATION; Start at 12:00 Atorvastatin Calcium (Lipitor) 40 mg HS PO Last administered on 03/29/18at 20:35 ; Start 03/13/18 at 21:00 Insulin Detemir (Levemir Inj) 45 units HS SQ ; Start 03/13/18 at 21:00; Stop 03/13 at 21:00; Status DC Fluticasone Propionate (Flonase [place] Spr) 1 spray BID EACH NARE Last administered on 03/30/18at 08:45; Start 03/13/18 at 21:00 Dextrose (D50w (Vial) Inj) 50 ml UNSCH PRN IV PUSH HYPOGLYCEMIA-SEE COMMENTS; Start 03/13/18 at 14:00 Glucagon (Glucagon Inj) 1 mg UNSCH PRN OTHER HYPOGLYCEMIA-SEE COMMENTS; Start 03/13/18 at 14:00 Insulin Aspart (NovoLOG SUPPLEMENTAL SCALE) 1 ACHS SLIDING SCALE SQ Last administered on 03/14/18at 13:21; Start 03/13/18 at 17:00; Stop 03/14/18 at 14:25; Status DC Insulin Detemir (Levemir Inj) 10 units HS SQ Last administered on 03/13/18at 22: 59; Start 03/13/18 at 21:00; Stop 03/14/18 at 14:25; Status DC Apixaban (Eliquis) 5 mg BID PO Last administered on 03/30/18at 08:41; Start 03/13 at 21:00 Metoprolol Tartrate (Lopressor) 25 mg Q12HR PO Last administered on 03/30/18 08:42; Start 03/13/18 at 21:00 Clonidine (Catapres) 0.1 mg Q6H PRN PO SBP>160, DBP>90 Last administered on 03/14at 10:25; Start 03/14/18 at 08:15 Insulin Detemir (Levemir Inj) 15 units HS SQ Last administered on 03/29/18at 20: 35; Start 03/14/18 at 21:00 Insulin Aspart (NovoLOG SUPPLEMENTAL SCALE) 1 ACHS SLIDING SCALE SQ Last administered on 03/30/18at 08:00; Start 03/14/18 at 17:00 Nifedipine (Procardia Xl) 30 mg DAILY PO Last administered on 03/30/18at 08:42; Start 03/15/18 at 09:00 Nifedipine (Procardia Xl) 30 mg ONCE ONCE PO Last administered on 03/14/18at 14: 57; Start 03/14/18 at 14:45; Stop 03/14/18 at 14:46; Status DC Temazepam (Restoril) 15 mg ONCE ONCE PO Last administered on 03/21/18at 02:00; Start 03/21/18 at 01:45; Stop 03/21/18 at 01:46; Status DC Melatonin (Melatonin) 5 mg ONCE ONCE PO Last administered on 03/24/18at 00:13; Start 03/23/18 at 23:30; Stop 03/23/18 at 23:31; Status DC A/P Problem List: (1) Impaired mobility and ADLs ICD Code: Z74.09 - Other reduced mobility Status: Acute (2) Atrial fibrillation ICD Code: I48.91 - Atrial fibrillation Status: Acute (3) Diabetes mellitus ICD Code: E11.9 - Diabetes mellitus Status: Acute (4) Hypertension ICD Code: I10 - Hypertension Status: Acute Assessment and Plan 1. Inability to care for self: Discussed case management, patient apparently at this time has no living residence option, near his family is out of town.. Insurance has denied for [facility] [place] [facility]. Life insurance policy details are pending, has a place at an [facility] once approved. Still pending details DEFER TO FOR PLACEMENT 2. Atrial fibrillation: Continue Apixaban, metoprolol. 3. Diabetes mellitus: Continue Levemir. Monitor Accu-checks and cover with sliding scale insulin. A1c 6.8. 4. Hypertension: Continue nifedipine, metoprolol. 5. Hyperlipidemia: Continue Lipitor. 6. DVT prophylaxis: Apixaban. AWAIT SNF ACCEPTANCE Discharge Planning We will need SNF or [facility] at discharge DIFFICULT PLACEMENT DUE TO FAMILY NOT LOCAL AND FINANCIAL STATUS DC TO SNF Suleiman Ellison DO March 30, 2018 11:45
[2018-03-30 12:00] VITALS: BP 130/70; PULSE 67; RESP 18; TEMP 97.4; O2SAT 96
[2018-03-30 16:00] VITALS: BP 165/78; PULSE 70; RESP 18; TEMP 98.7; O2SAT 95
[2018-03-30 20:00] VITALS: BP 138/82; PULSE 77; RESP 22; TEMP 97.5; O2SAT 95
[2018-03-30] MEDS: ATORVASTATIN 40 MG TAB PO SCH (21:54)
[2018-03-30] MEDS: INSULIN DETEMIR 100 UNITS/ML VIAL SQ SCH (21:55)
[2018-03-31] VITALS: BP 127/78; PULSE 72; RESP 22; TEMP 97.8; O2SAT 94
[2018-03-31 04:00] VITALS: BP 143/72; PULSE 70; RESP 22; TEMP 98.2; O2SAT 98
[2018-03-31] MEDS: ACETAMINOPHEN 325 MG TAB PO PRN ×3 (06:00→20:53)
[2018-03-31] MEDS: INSULIN ASPART SUPPLEMENTAL SCALE SQ SCH ×4 (07:59→21:00)
[2018-03-31 08:00] VITALS: BP 145/74; PULSE 61; RESP 18; TEMP 97.3; O2SAT 95
[2018-03-31] MEDS: APIXABAN 5 MG TABLET PO SCH ×2 (08:00→20:53)
[2018-03-31] MEDS: METOPROLOL TARTRATE 25 MG TAB PO SCH ×2 (08:00→20:52)
[2018-03-31] MEDS: SODIUM CHLORIDE 0.9% FLUSH 10 ML FLUSH IV FLUSH SCH ×2 (08:00→20:53)
[2018-03-31] MEDS: FLUTICASONE PROPIONATE 50 MCG/ACT 16 GM NASAL SPRAY EACH NARE SCH ×2 (08:00→20:53)
[2018-03-31] MEDS: NIFEdipine 30 MG SUSTAINED RELEASE TAB PO SCH (08:00)
--- NOTE | 2018-03-31 11:44 | HHI.PR ---
Subjective Remarks 5-15 Nursing denies any deterioration since last night. No new complaints have been reported by the patient. Is eating by himself sitting up in his chair. 5-16 NO NEW COMPLAINTS WANTS TO GO HOME BUT NOT A SAFE DC TO HOME AWAIT FAMILY HELP FOR PLACEMENT 5-17 AWAIT SNF TOMORROW NO NEW COMPLAINTS DW RN AND PT 5-18 DC TO SNF TODAY IF BED IS AVAILABLE 5-19 AWAIT SNF PLACEMENT NO NEW COMPLAINTS WANTS TO LEAVE THE HOSPITAL NEEDS SAFE DISCHARGE CANNOT LIVE ALONE AT THIS TIME 5-20 COMPLAINS OF CONSTIPATION WILL GIVE MEDS FOR THIS DW RN AND PT AWAIT SAFE PLACEMENT Objective Vitals Vital Signs Date Time Temp Pulse Resp B/P (MAP) Pulse Ox O2 Delivery O2 Flow Rate FiO2 03/31/18 08:55 95 Room Air 03/31/18 08:00 97.3 61 18 145/74 (97) 95 03/31/18 04:00 Room Air 03/31/18 04:00 98.2 70 22 143/72 (95) 98 03/31/18 00:00 97.8 72 22 127/78 (94) 94 03/31/18 00:00 Room Air 03/30/18 20:00 97.5 77 22 138/82 (100) 95 03/30/18 20:00 Room Air 03/30/18 16:44 95 Room Air 03/30/18 16:00 98.7 70 18 165/78 (107) 95 03/30/18 13:28 96 Room Air 03/30/18 12:00 97.4 67 18 130/70 (90) 96 I/O 03/30/18 03/30/18 03/30/18 03/31/18 03/31/18 03/31/18 07:00 15:00 23:00 07:00 15:00 23:00 Intake Total 800 ml 720 ml 580 ml Output Total 1600 ml 1300 ml 1200 ml Balance -800 ml -580 ml -620 ml Intake Oral 800 ml 720 ml 580 ml Output Urine Total 1600 ml 1300 ml 1200 ml # Bowel Movements 1 Result Diagram: 03/28/18 0633 03/28/18 0633 Imaging Last Impressions Chest X-Ray 03/13/18 1121 Signed Impressions: Service Date/Time: Tuesday, March 13, 2018 12:23 - CONCLUSION: Cardiomegaly with no definite acute cardiopulmonary disease. Leo Martinez MD Objective Remarks GENERAL: Very hard of hearing awake and alert and oriented 3 talkative and cooperative SKIN: Warm and dry. HEAD: Atraumatic. Normocephalic. EYES: Pupils equal and round. No scleral icterus. No injection or drainage. Extraocular muscles intact ENT: No nasal bleeding or discharge. Mucous membranes pink and moist. Tongue is midline NECK: Trachea midline. No JVD. CARDIOVASCULAR:IRRegular rate and rhythm. S1-S2 no S3-S4 RESPIRATORY: No accessory muscle use. Clear to auscultation. Breath sounds equal bilaterally. GASTROINTESTINAL: Abdomen soft, non-tender, nondistended. Hepatic and splenic margins not palpable. MUSCULOSKELETAL: Extremities without clubbing, cyanosis, or edema. No obvious deformities. NEUROLOGICAL: Awake and alert. No obvious cranial nerve deficits. Motor grossly within normal limits. 4 out of 5 muscle strength in the arms and legs. Normal speech. PSYCHIATRIC: INAppropriate mood and affect; insight and judgment ABnormal. Procedures None Medications and IVs Current Medications Insulin Aspart (NovoLOG INJ) 15 units ONCE ONCE SQ Last administered on at 10:43; Start 03/13/18 at 10:00; Stop 03/13/18 at 10:01; Status DC Sodium Chloride (NS Flush) 2 ml UNSCH PRN IVF FLUSH AFTER USING IV ACCESS; Start 03/13/18 at 11:15; Stop 03/13/18 at 17:55; Status DC Sodium Chloride (NS Flush) 2 ml UNSCH PRN IV FLUSH FLUSH AFTER USING IV ACCESS ; Start 03/13/18 at 12:00 Sodium Chloride (NS Flush) 2 ml BID IV FLUSH Last administered on 03/31/18at 08: 00; Start 03/13/18 at 21:00 Acetaminophen (Tylenol) 650 mg Q4H PRN PO TEMP > 100.4, headache Last administered on 03/31/18at 06:00; Start 03/13/18 at 12:00 Ondansetron HCl (Zofran Inj) 4 mg Q6H PRN IVP NAUSEA OR VOMITING; Start at 12:00 Naloxone HCl (Narcan Inj) 0.4 mg UNSCH PRN IV PUSH SEE LABEL COMMENTS; Start at 12:00 Magnesium Hydroxide (Milk Of Magnesia Liq) 30 ml Q12H PRN PO Mild constipation ; Start 03/13/18 at 12:00 Sennosides (Senokot) 17.2 mg Q12H PRN PO Moderate constipation Last administered on 03/23/18at 12:21; Start 03/13/18 at 12:00 Bisacodyl (Dulcolax Supp) 10 mg DAILY PRN RECTAL SEVERE CONSITIPATION; Start at 12:00 Lactulose (Lactulose Liq) 30 ml DAILY PRN PO SEVERE CONSITIPATION; Start at 12:00 Atorvastatin Calcium (Lipitor) 40 mg HS PO Last administered on 03/30/18at 21:54 ; Start 03/13/18 at 21:00 Insulin Detemir (Levemir Inj) 45 units HS SQ ; Start 03/13/18 at 21:00; Stop 03/13 at 21:00; Status DC Fluticasone Propionate (Flonase [place] Spr) 1 spray BID EACH NARE Last administered on 03/31/18at 08:00; Start 03/13/18 at 21:00 Dextrose (D50w (Vial) Inj) 50 ml UNSCH PRN IV PUSH HYPOGLYCEMIA-SEE COMMENTS; Start 03/13/18 at 14:00 Glucagon (Glucagon Inj) 1 mg UNSCH PRN OTHER HYPOGLYCEMIA-SEE COMMENTS; Start 03/13/18 at 14:00 Insulin Aspart (NovoLOG SUPPLEMENTAL SCALE) 1 ACHS SLIDING SCALE SQ Last administered on 03/14/18at 13:21; Start 03/13/18 at 17:00; Stop 03/14/18 at 14:25; Status DC Insulin Detemir (Levemir Inj) 10 units HS SQ Last administered on 03/13/18at 22: 59; Start 03/13/18 at 21:00; Stop 03/14/18 at 14:25; Status DC Apixaban (Eliquis) 5 mg BID PO Last administered on 03/31/18at 08:00; Start 03/13 at 21:00 Metoprolol Tartrate (Lopressor) 25 mg Q12HR PO Last administered on 03/31/18at 08:00; Start 03/13/18 at 21:00 Clonidine (Catapres) 0.1 mg Q6H PRN PO SBP>160, DBP>90 Last administered on 03/14at 10:25; Start 03/14/18 at 08:15 Insulin Detemir (Levemir Inj) 15 units HS SQ Last administered on 03/30/18at 21: 55; Start 03/14/18 at 21:00 Insulin Aspart (NovoLOG SUPPLEMENTAL SCALE) 1 ACHS SLIDING SCALE SQ Last administered on 03/30/18at 21:58; Start 03/14/18 at 17:00 Nifedipine (Procardia Xl) 30 mg DAILY PO Last administered on 03/31/18at 08:00; Start 03/15/18 at 09:00 Nifedipine (Procardia Xl) 30 mg ONCE ONCE PO Last administered on 03/14/18at 14: 57; Start 03/14/18 at 14:45; Stop 03/14/18 at 14:46; Status DC Temazepam (Restoril) 15 mg ONCE ONCE PO Last administered on 03/21/18at 02:00; Start 03/21/18 at 01:45; Stop 03/21/18 at 01:46; Status DC Melatonin (Melatonin) 5 mg ONCE ONCE PO Last administered on 03/24/18at 00:13; Start 03/23/18 at 23:30; Stop 03/23/18 at 23:31; Status DC A/P Problem List: (1) Impaired mobility and ADLs ICD Code: Z74.09 - Other reduced mobility Status: Acute (2) Atrial fibrillation ICD Code: I48.91 - Atrial fibrillation Status: Acute (3) Diabetes mellitus ICD Code: E11.9 - Diabetes mellitus Status: Acute (4) Hypertension ICD Code: I10 - Hypertension Status: Acute Assessment and Plan 1. Inability to care for self: Discussed case management, patient apparently at this time has no living residence option, near his family is out of town.. Insurance has denied for second time senior care facility. Life insurance policy details are pending, has a place at an [facility] once approved. Still pending details DEFER TO FOR PLACEMENT 2. Atrial fibrillation: Continue Apixaban, metoprolol. 3. Diabetes mellitus: Continue Levemir. Monitor Accu-checks and cover with sliding scale insulin. A1c 6.8. 4. Hypertension: Continue nifedipine, metoprolol. 5. Hyperlipidemia: Continue Lipitor. 6. DVT prophylaxis: Apixaban. AWAIT SNF ACCEPTANCE CONSTIPATION START MEDS FOR THIS Discharge Planning We will need SNF or [facility] at discharge DIFFICULT PLACEMENT DUE TO FAMILY NOT LOCAL AND FINANCIAL STATUS DC TO SNF Suleiman Ellison DO March 31, 2018 11:44
[2018-03-31] MEDS: BISACODYL 10 MG SUPP RECTAL SCH (11:45)
[2018-03-31] MEDS: SENNOSIDES 8.6 MG TAB PO PRN (11:56)
[2018-03-31 12:00] VITALS: BP 141/76; PULSE 69; RESP 18; TEMP 97.3; O2SAT 94
[2018-03-31 16:00] VITALS: BP 153/75; PULSE 70; RESP 18; TEMP 98.6; O2SAT 94
[2018-03-31 20:00] VITALS: BP 167/90; PULSE 84; RESP 18; TEMP 97.6; O2SAT 96
[2018-03-31] MEDS: ATORVASTATIN 40 MG TAB PO SCH (20:53)
[2018-03-31] MEDS: INSULIN DETEMIR 100 UNITS/ML VIAL SQ SCH (20:59)
[2018-04-01] VITALS: BP 133/62; PULSE 77; RESP 19; TEMP 98.9; O2SAT 95
[2018-04-01 04:00] VITALS: BP 134/65; PULSE 64; RESP 19; TEMP 98.7; O2SAT 95
[2018-04-01] MEDS: ACETAMINOPHEN 325 MG TAB PO PRN ×3 (05:58→23:54)
[2018-04-01 08:06] VITALS: BP 131/72; PULSE 79; RESP 18; TEMP 96.9; O2SAT 96
[2018-04-01] MEDS: METOPROLOL TARTRATE 25 MG TAB PO SCH ×2 (08:34→21:29)
[2018-04-01] MEDS: APIXABAN 5 MG TABLET PO SCH ×2 (08:34→21:29)
[2018-04-01] MEDS: NIFEdipine 30 MG SUSTAINED RELEASE TAB PO SCH (08:34)
[2018-04-01] MEDS: SODIUM CHLORIDE 0.9% FLUSH 10 ML FLUSH IV FLUSH SCH ×2 (08:35→21:29)
[2018-04-01] MEDS: BISACODYL 10 MG SUPP RECTAL SCH (08:35)
[2018-04-01] MEDS: INSULIN ASPART SUPPLEMENTAL SCALE SQ SCH ×4 (08:35→21:31)
[2018-04-01] MEDS: FLUTICASONE PROPIONATE 50 MCG/ACT 16 GM NASAL SPRAY EACH NARE SCH ×2 (08:37→21:28)
--- NOTE | 2018-04-01 11:10 | HHI.PR ---
Subjective Remarks in no acute distress. complaining of constipation. no other complaints. Objective Vitals Vital Signs Date Time Temp Pulse Resp B/P (MAP) Pulse Ox O2 Delivery O2 Flow Rate FiO2 04/01/18 08:06 96.9 79 18 131/72 (91) 96 04/01/18 08:00 Room Air 04/01/18 04:00 Room Air 04/01/18 04:00 98.7 64 19 134/65 (88) 95 04/01/18 00:00 98.9 77 19 133/62 (85) 95 03/31/18 20:00 97.6 84 18 167/90 (115) 96 03/31/18 20:00 Room Air 03/31/18 16:57 94 Room Air 03/31/18 16:00 98.6 70 18 153/75 (101) 94 03/31/18 12:34 94 Room Air 03/31/18 12:00 97.3 69 18 141/76 (97) 94 I/O 03/31/18 03/31/18 03/31/18 04/01/18 04/01/18 04/01/18 07:00 15:00 23:00 07:00 15:00 23:00 Intake Total 580 ml 600 ml 550 ml Output Total 1200 ml 1500 ml 1800 ml Balance -620 ml -900 ml -1250 ml Intake Oral 580 ml 600 ml 550 ml Output Urine Total 1200 ml 1500 ml 1800 ml # Bowel Movements 1 Result Diagram: 03/28/18 0633 03/28/18 0633 Imaging Last Impressions Chest X-Ray 03/13/18 1121 Signed Impressions: Service Date/Time: Tuesday, March 13, 2018 12:23 - CONCLUSION: Cardiomegaly with no definite acute cardiopulmonary disease. Leo Martinez MD Objective Remarks GENERAL: This is a well-nourished, well-developed patient, in no apparent distress. CARDIOVASCULAR: Regular rate and regular rhythm without murmurs, gallops, or rubs. RESPIRATORY: Clear to auscultation. Breath sounds equal bilaterally. No wheezes , rales, or rhonchi. GASTROINTESTINAL: Abdomen soft, non-tender, nondistended. Normal, active bowel sounds MUSCULOSKELETAL: Extremities without clubbing, cyanosis, or edema. NEURO: Alert & Oriented x4 to person, place, time, situation. Moves all ext x4 Procedures None Medications and IVs Inpatient Medications Acetaminophen (Tylenol) 650 mg Q4H PRN PO TEMP > 100.4, headache Last administered on 04/01/18at 05:58; Start 03/13/18 at 12:00 Apixaban (Eliquis) 5 mg BID PO Last administered on 04/01/18 08:34; Start 03/13 at 21:00 Atorvastatin Calcium (Lipitor) 40 mg HS PO Last administered on 03/31/18at 20:53 ; Start 03/13/18 at 21:00 Bisacodyl (Dulcolax Supp) 10 mg DAILY RECTAL ; Start 03/31/18 at 11:45 Clonidine (Catapres) 0.1 mg Q6H PRN PO SBP>160, DBP>90 Last administered on 03/14at 10:25; Start 03/14/18 at 08:15 Dextrose (D50w (Vial) Inj) 50 ml UNSCH PRN IV PUSH HYPOGLYCEMIA-SEE COMMENTS; Start 03/13/18 at 14:00 Fluticasone Propionate (Flonase Irving Spr) 1 spray BID EACH NARE Last administered on 04/01/18at 08:37; Start 03/13/18 at 21:00 Glucagon (Glucagon Inj) 1 mg UNSCH PRN OTHER HYPOGLYCEMIA-SEE COMMENTS; Start 03/13/18 at 14:00 Insulin Aspart (NovoLOG SUPPLEMENTAL SCALE) 1 ACHS SLIDING SCALE SQ Last administered on 04/01/18at 08:35; Start 03/14/18 at 17:00 Insulin Aspart (NovoLOG INJ) 15 units ONCE ONCE SQ Last administered on at 10:43; Start 03/13/18 at 10:00; Stop 03/13/18 at 10:01; Status DC Insulin Detemir (Levemir Inj) 15 units HS SQ Last administered on 03/31/18at 20: 59; Start 03/14/18 at 21:00 Lactulose (Lactulose Liq) 30 ml DAILY PRN PO SEVERE CONSITIPATION; Start at 12:00 Magnesium Hydroxide (Milk Of Magnesia Liq) 30 ml Q12H PRN PO Mild constipation ; Start 03/13/18 at 12:00 Melatonin (Melatonin) 5 mg ONCE ONCE PO Last administered on 03/24/18at 00:13; Start 03/23/18 at 23:30; Stop 03/23/18 at 23:31; Status DC Metoprolol Tartrate (Lopressor) 25 mg Q12HR PO Last administered on 04/01/18at 08:34; Start 03/13/18 at 21:00 Naloxone HCl (Narcan Inj) 0.4 mg UNSCH PRN IV PUSH SEE LABEL COMMENTS; Start at 12:00 Nifedipine (Procardia Xl) 30 mg ONCE ONCE PO Last administered on 03/14/18at 14: 57; Start 03/14/18 at 14:45; Stop 03/14/18 at 14:46; Status DC Ondansetron HCl (Zofran Inj) 4 mg Q6H PRN IVP NAUSEA OR VOMITING; Start at 12:00 Sennosides (Senokot) 17.2 mg Q12H PRN PO Moderate constipation Last administered on 03/31/18at 11:56; Start 03/13/18 at 12:00 Sodium Chloride (NS Flush) 2 ml BID IV FLUSH Last administered on 04/01/18at 08: 35; Start 03/13/18 at 21:00 Temazepam (Restoril) 15 mg ONCE ONCE PO Last administered on 03/21/18at 02:00; Start 03/21/18 at 01:45; Stop 03/21/18 at 01:46; Status DC A/P Problem List: (1) Impaired mobility and ADLs ICD Code: Z74.09 - Other reduced mobility Status: Acute (2) Atrial fibrillation ICD Code: I48.91 - Atrial fibrillation Status: Acute (3) Diabetes mellitus ICD Code: E11.9 - Diabetes mellitus Status: Acute (4) Hypertension ICD Code: I10 - Hypertension Status: Acute Assessment and Plan 1. Inability to care for self: Insurance has denied for second time [facility] facility. Life insurance policy details are pending, has a place at an [facility] once approved. Still pending details 2. Atrial fibrillation: Continue Apixaban, metoprolol. 3. Diabetes mellitus: Continue Levemir. Monitor Accu-checks and cover with sliding scale insulin. A1c 6.8. 4. Hypertension: Continue nifedipine, metoprolol. 5. Hyperlipidemia: Continue Lipitor. 6. DVT prophylaxis: Apixaban. 7. constipation; laxatives as needed. Discharge Planning dc planning in progress. Mónica Lakhani MD April 01, 2018 11:10
[2018-04-01 12:06] VITALS: BP 143/77; PULSE 61; RESP 17; TEMP 97.6; O2SAT 96
[2018-04-01 16:02] VITALS: BP 130/65; PULSE 89; RESP 18; TEMP 97.6; O2SAT 95
[2018-04-01] MEDS: SENNOSIDES 8.6 MG TAB PO PRN (17:55)
[2018-04-01 21:24] VITALS: BP 110/57; PULSE 84; RESP 18; TEMP 98; O2SAT 95
[2018-04-01] MEDS: ATORVASTATIN 40 MG TAB PO SCH (21:29)
[2018-04-01] MEDS: INSULIN DETEMIR 100 UNITS/ML VIAL SQ SCH (21:30)
[2018-04-02 00:42] VITALS: BP 118/61; PULSE 70; RESP 18; TEMP 97.7; O2SAT 95
[2018-04-02 05:00] VITALS: BP 135/73; PULSE 68; RESP 18; TEMP 97.2; O2SAT 95
[2018-04-02 08:00] VITALS: BP 158/98; PULSE 76; RESP 20; TEMP 97.2; O2SAT 97
[2018-04-02] MEDS: SODIUM CHLORIDE 0.9% FLUSH 10 ML FLUSH IV FLUSH SCH (08:49)
[2018-04-02] MEDS: INSULIN ASPART SUPPLEMENTAL SCALE SQ SCH ×2 (08:49→12:30)
[2018-04-02] MEDS: METOPROLOL TARTRATE 25 MG TAB PO SCH (08:49)
[2018-04-02] MEDS: NIFEdipine 30 MG SUSTAINED RELEASE TAB PO SCH (08:49)
[2018-04-02] MEDS: APIXABAN 5 MG TABLET PO SCH (08:49)
[2018-04-02] MEDS: FLUTICASONE PROPIONATE 50 MCG/ACT 16 GM NASAL SPRAY EACH NARE SCH (08:52)
[2018-04-02] MEDS: BISACODYL 10 MG SUPP RECTAL SCH (08:53)
--- NOTE | 2018-04-02 11:52 | HHI.PR ---
Subjective Remarks in no distress. clinically no change. Objective Vitals Vital Signs Date Time Temp Pulse Resp B/P (MAP) Pulse Ox O2 Delivery O2 Flow Rate FiO2 04/02/18 08:00 Room Air 04/02/18 08:00 97.2 76 20 158/98 (118) 97 04/02/18 05:00 97.2 68 18 135/73 (93) 95 04/02/18 04:00 Room Air 04/02/18 00:42 97.7 70 18 118/61 (80) 95 04/02/18 00:00 Room Air 04/01/18 21:24 98.0 84 18 110/57 (74) 95 04/01/18 20:00 Room Air 04/01/18 16:02 97.6 89 18 130/65 (86) 95 04/01/18 12:06 97.6 61 17 143/77 (99) 96 I/O 04/01/18 04/01/18 04/01/18 04/02/18 04/02/18 04/02/18 07:00 15:00 23:00 07:00 15:00 23:00 Intake Total 550 ml 960 ml 480 ml Output Total 1800 ml 1250 ml 300 ml Balance -1250 ml -290 ml 180 ml Intake Oral 550 ml 960 ml 480 ml Output Urine Total 1800 ml 1250 ml 300 ml # Bowel Movements 1 0 Imaging Last Impressions Chest X-Ray 03/13/18 1121 Signed Impressions: Service Date/Time: Tuesday, March 13, 2018 12:23 - CONCLUSION: Cardiomegaly with no definite acute cardiopulmonary disease. Leo Martinez MD Objective Remarks GENERAL: This is a well-nourished, well-developed patient, in no apparent distress. CARDIOVASCULAR: Regular rate and regular rhythm without murmurs, gallops, or rubs. RESPIRATORY: Clear to auscultation. Breath sounds equal bilaterally. No wheezes , rales, or rhonchi. GASTROINTESTINAL: Abdomen soft, non-tender, nondistended. Normal, active bowel sounds MUSCULOSKELETAL: Extremities without clubbing, cyanosis, or edema. NEURO: Alert & Oriented x4 to person, place, time, situation. Moves all ext x4 Procedures None Medications and IVs Inpatient Medications Acetaminophen (Tylenol) 650 mg Q4H PRN PO TEMP > 100.4, headache Last administered on 04/01/18at 23:54; Start 03/13/18 at 12:00 Apixaban (Eliquis) 5 mg BID PO Last administered on 04/02/18at 08:49; Start 03/13 at 21:00 Atorvastatin Calcium (Lipitor) 40 mg HS PO Last administered on 04/01/18at 21:29 ; Start 03/13/18 at 21:00 Bisacodyl (Dulcolax Supp) 10 mg DAILY RECTAL ; Start 03/31/18 at 11:45 Clonidine (Catapres) 0.1 mg Q6H PRN PO SBP>160, DBP>90 Last administered on 03/14at 10:25; Start 03/14/18 at 08:15 Dextrose (D50w (Vial) Inj) 50 ml UNSCH PRN IV PUSH HYPOGLYCEMIA-SEE COMMENTS; Start 03/13/18 at 14:00 Fluticasone Propionate (Flonase Irving Spr) 1 spray BID EACH NARE Last administered on 04/02/18at 08:52; Start 03/13/18 at 21:00 Glucagon (Glucagon Inj) 1 mg UNSCH PRN OTHER HYPOGLYCEMIA-SEE COMMENTS; Start 03/13/18 at 14:00 Insulin Aspart (NovoLOG SUPPLEMENTAL SCALE) 1 ACHS SLIDING SCALE SQ Last administered on 04/02/18at 08:49; Start 03/14/18 at 17:00 Insulin Aspart (NovoLOG INJ) 15 units ONCE ONCE SQ Last administered on at 10:43; Start 03/13/18 at 10:00; Stop 03/13/18 at 10:01; Status DC Insulin Detemir (Levemir Inj) 15 units HS SQ Last administered on 04/01/18at 21: 30; Start 03/14/18 at 21:00 Lactulose (Lactulose Liq) 30 ml DAILY PRN PO SEVERE CONSITIPATION; Start at 12:00 Magnesium Hydroxide (Milk Of Magnesia Liq) 30 ml Q12H PRN PO Mild constipation ; Start 03/13/18 at 12:00 Melatonin (Melatonin) 5 mg ONCE ONCE PO Last administered on 03/24/18at 00:13; Start 03/23/18 at 23:30; Stop 03/23/18 at 23:31; Status DC Metoprolol Tartrate (Lopressor) 25 mg Q12HR PO Last administered on 04/02/18at 08:49; Start 03/13/18 at 21:00 Naloxone HCl (Narcan Inj) 0.4 mg UNSCH PRN IV PUSH SEE LABEL COMMENTS; Start at 12:00 Nifedipine (Procardia Xl) 30 mg ONCE ONCE PO Last administered on 03/14/18at 14: 57; Start 03/14/18 at 14:45; Stop 03/14/18 at 14:46; Status DC Ondansetron HCl (Zofran Inj) 4 mg Q6H PRN IVP NAUSEA OR VOMITING; Start at 12:00 Sennosides (Senokot) 17.2 mg Q12H PRN PO Moderate constipation Last administered on 04/01/18at 17:55; Start 03/13/18 at 12:00 Sodium Chloride (NS Flush) 2 ml BID IV FLUSH Last administered on 04/02/18at 08: 49; Start 03/13/18 at 21:00 Temazepam (Restoril) 15 mg ONCE ONCE PO Last administered on 03/21/18at 02:00; Start 03/21/18 at 01:45; Stop 03/21/18 at 01:46; Status DC A/P Problem List: (1) Impaired mobility and ADLs ICD Code: Z74.09 - Other reduced mobility Status: Acute (2) Atrial fibrillation ICD Code: I48.91 - Atrial fibrillation Status: Acute (3) Diabetes mellitus ICD Code: E11.9 - Diabetes mellitus Status: Acute (4) Hypertension ICD Code: I10 - Hypertension Status: Acute Assessment and Plan 1. Inability to care for self: Insurance has denied for second time care home facility. Life insurance policy details are pending, has a place at an [facility] once approved. Still pending details 2. Atrial fibrillation: Continue Apixaban, metoprolol. 3. Diabetes mellitus: Continue Levemir. Monitor Accu-checks and cover with sliding scale insulin. A1c 6.8. 4. Hypertension: Continue nifedipine, metoprolol. 5. Hyperlipidemia: Continue Lipitor. 6. DVT prophylaxis: Apixaban. 7. constipation; laxatives as needed. Discharge Planning dc planning in progress. Mónica Lakhani MD April 02, 2018 11:52
[2018-04-02 12:00] VITALS: BP 119/77; PULSE 71; RESP 20; TEMP 97.2; O2SAT 96
[2018-04-02 16:00] VITALS: BP 135/81; PULSE 73; RESP 20; TEMP 97.6; O2SAT 95
== END 2018-04-02 18:05 ==
LOC: NEPD 22:37 → NEDA 03-13 11:34 → NEPFCDU 03-13 14:12 → N04A 03-15 19:59 → N04B 03-26 19:17 → N04A 03-26 19:30 → N04B 04-01 08:58 → N04A 04-01 09:00
PROVIDERS: ADMIT Internal Medicine; ATTEND Internal Medicine
DX: Z74.09 Other reduced mobility (principal); I48.91 Unspecified atrial fibrillation; E11.9 Type 2 diabetes mellitus without complications; I11.0 Hypertensive heart disease with heart failure; I50.9 Heart failure, unspecified; E78.5 Hyperlipidemia, unspecified; K21.9 Gastro-esophageal reflux disease without esophagitis; I45.10 Unspecified right bundle-branch block; H91.90 Unspecified hearing loss, unspecified ear; Z95.0 Presence of cardiac pacemaker; Z79.4 Long term (current) use of insulin; Z79.899 Other long term (current) drug therapy
CPT/HCPCS: 71045; 80053; 81001; 82948; 83036; 83735; 84100; 84439; 84443; 85025; 85610; 85730; 93005; 96372; 97110; 97116; 97162; 97167; 97530; 97535; 99285; G0378; G8987; G8988; J1815